=== PATIENT | male | born 1945 | race Caucasian/White ===

== ENCOUNTER 2020-06-09 11:12 | Emergency (ER) | payer OTHER, SELFPAY ==
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
[2020-06-09 11:14] VITALS: BP 152/95; PULSE 97; RESP 14; TEMP 37.1; O2SAT 99
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
[2020-06-09 12:35] VITALS: BP 145/89; PULSE 89; RESP 16; TEMP 36.7; O2SAT 97
== END 2020-06-09 12:35 | disposition home or self-care (01) ==
PROVIDERS: Emergency Provider Emergency Medicine; PCP Internal Medicine
DX: R07.89 Other chest pain (principal); I12.9 Hypertensive chronic kidney disease with stage 1 through stage 4 chronic kidney disease, or unspecified chronic kidney disease; N18.4 Chronic kidney disease, stage 4 (severe); D63.1 Anemia in chronic kidney disease; N40.0 Benign prostatic hyperplasia without lower urinary tract symptoms; H40.9 Unspecified glaucoma; E78.5 Hyperlipidemia, unspecified; E03.9 Hypothyroidism, unspecified; E66.01 Morbid (severe) obesity due to excess calories; Z68.41 Body mass index [BMI] 40.0-44.9, adult; M17.12 Unilateral primary osteoarthritis, left knee; V43.52XA Car driver injured in collision with other type car in traffic accident, initial encounter
CPT/HCPCS: 71046; 99283

== ENCOUNTER 2021-02-22 15:42 | Inpatient (IN) | payer OTHER, SELFPAY ==
[2021-02-22] VITALS (13 sets, daily range): BP systolic 113–169; BP diastolic 65–108; PULSE 79–109; RESP 16–25; TEMP 36.6–37.1; O2SAT 93–99; BMI 42.1
--- NOTE | ~2021-02-22 | XR_ITS ---
EXAMINATION: XR chest 2V DATE: 02/22/2021 16:33 INDICATION: Midsternal chest pain. TECHNIQUE: Frontal and lateral views of the chest were obtained. COMPARISON: Chest 2 views 06/09/2020, CT abdomen and pelvis 12/28/2016 FINDINGS: There is mild atelectasis versus scarring at the lung bases. No pleural effusion or pneumot horax. The heart size is normal. IMPRESSION: 1. Mild atelectasis versus scarring at the lung bases. Reviewed, dictated and finalized at location A.
--- NOTE | 2021-02-22 15:44 | ECG_ITS ---
Measurements Intervals [place] Rate: 100 P: 31 HI: 154 QRS: -37 QRSD: 104 T: 86 QT: 368 QTc: 477 Interpretive Statements SINUS TACHYCARDIA ATRIAL COUPLETS AND ATRIAL PREMATURE COMPLEXES LEFT AXIS DEVIATION DELAYED PRECORDIAL R/S TRANSITION BORDERLINE ST-T WAVE ABNORMALITY- HIGH LATERAL LEADS BASELINE WANDER- I, II, AVR, AVL, AVF, V1-V3 ABNORMAL ECG Electronically Signed On 02-22-2021 17:30:10 CDT by George Weber D.O.
[2021-02-22 16:03] LABS: Basophils Absolute Auto 0.1 K/mm3 (0.0-0.1); Basophils Percent Auto 0.7 % (0.2-1.2); Eosinophils Absolute Auto 0.3 K/mm3 (0-0.3); Eosinophils Percent Auto 2.2 % (0-4.4); Hematocrit 46.9 % (42.0-52.0); Hemoglobin 14.6 g/dL (14.0-18.0); Immature Granulocyte Absolute 0.08 K/mm3 (0.00-0.031); Immature Granulocyte Percent A 0.6 % (0-0.5); Lymphocytes Percent Auto 35.5 % (18.3-44.2); Mean Corpuscular HGB Conc 31.1 g/dl (32-36); Mean Corpuscular Hemoglobin 25.9 pg (26-34); Mean Corpuscular Volume 83.3 fl (80-100); Monocytes Absolute Auto 0.9 K/mm3 (0.1-0.6); Monocytes Percent Auto 7.3 % (2.6-8.5); Neutrophils Absolute Auto 6.8 K/mm3 (1.3-6.7); Neutrophils Percent Auto 53.7 % (45.5-73.1); Platelet Count Result 276 k/mm3 (150-375); Red Blood Count 5.63 M/mm3 (4.6-6.20); Red Cell Distribution Width 17.5 % (11.5-14.5); White Blood Count 12.7 K/mm3 (4.5-10.0)
[2021-02-22 16:13] LABS: INR 1.1; Prothrombin Time 13.6 Seconds (11.1-14.7)
[2021-02-22 16:14] LABS: Partial Thromboplastin Time 29.1 SECONDS (22.3-36.8)
[2021-02-22 16:17] LABS: Anion Gap 15 mmol/L (8-16); Blood Urea Nitrogen 30 mg/dL (9-20); Calcium 9.4 mg/dL (8.4-10.2); Carbon Dioxide 20 mmol/L (22-30); Chloride 102 mmol/L (98-107); Estimated Glomerular Filt Rate 40; Glucose 205 mg/dL (65-110); Potassium 3.4 mmol/L (3.4-5.0); Sodium 137 mmol/L (137-145)
[2021-02-22 16:26] LABS: Atypical Lymphocytes Present; Platelet Estimate Adequate (Adequate)
[2021-02-22 16:49] LABS: Troponin I 0.829 ng/mL (0.000-0.034)
[2021-02-22] MEDS: ASPIRIN 81 MG CHEWABLE TABLET 324 MG PO (17:05)
[2021-02-22 18:06] LABS: Cholesterol 200 mg/dL (0-200); HDL Direct 37 mg/dL; Triglycerides 398 mg/dL (<150)
[2021-02-22 18:10] LABS: LDL Cholesterol Direct 83 mg/dL
[2021-02-22] MEDS: NITROGLYCERIN OINTMENT 1 INCH DOSE TRANSDERM (18:37)
[2021-02-22] MEDS: ATORVASTATIN 40 MG TABLET PO (18:37)
[2021-02-22] MEDS: METOPROLOL TARTRATE INJ 5 MG/5 ML VIAL IV PUSH (18:38)
[2021-02-22] MEDS: ENOXAPARIN 120 MG/0.8 ML SYRINGE SUB-Q (18:38)
--- NOTE | 2021-02-22 18:41 | PM.CNCAR ---
Assessment and Plan Assessment and plan (1) Chest pain: Code(s): R07.9 - Chest pain, unspecified Status: Acute Assessment and Plan: Resolved. (2) Elevated troponin: Code(s): R77.8 - Other specified abnormalities of plasma proteins Status: Acute Assessment and Plan: Probably NSTEMI. Follow serial troponin. Treatment with aspirin daily, Lovenox 1 mg/kg q 12 hours, Metoprolol, Atorvastatin. Check Lipid panel. Obtain echo Wednesday. Discuss risks/benefits/alternative treatment to cardiac cath on Wednesday and he is agreeable for procedure. (3) CKD (chronic kidney disease) stage 3, GFR 30-59 ml/min: Code(s): N18.30 - Chronic kidney disease, stage 3 unspecified Status: Acute (4) Obesity: Code(s): E66.9 - Obesity, unspecified Status: Acute (5) Essential hypertension: Code(s): I10 - Essential (primary) hypertension Status: Acute Assessment and Plan: Start Metoplol and monitor BP. History of Present Illness History of Present Illness Consult date/time: 02/22/21 18:41 Reason for consult: Chest pain. 75 yr old man presented to ER with chest pain. He is obese but with no significant cardiac history. His PCP is Dr. Davila but he does not like seeing physicians and has not seen him in years. Reports today he was eating M&M's and drinking pepsi when he noted vague mild chest discomfort across his chest lasting up to 30 minutes[address] He [address] himself into ER and pain subsided and has not returned. He normally can walk 1/2 mile with his cane due to arthritis and would have AVERY at that point. He has been trying to lose weight and states he lost about 85 pounds. Denies sob, orthopnea, PND, edema, dizziness, palpitations. EKG shows sinus rhythm with PAC's, borderline ST-T wave in high lateral leads. Troponin 0.829 first set. Cr 1.7/GFR 40. CXR is OK. Reason For Visit: CHEST PAIN Review of Systems Review of Systems: All systems reviewed & are unremarkable except as noted in HPI and below Constitutional: Constitutional: Reports as per HPI, Denies chills and Denies fever(s) Cardiovascular: Cardiovascular: Reports as per HPI, Reports chest pain, Denies irregular heart rhythm, Denies leg edema, Denies lightheadedness and Denies dyspnea on exertion Respiratory: Respiratory: Reports as per HPI and Denies dyspnea Gastrointestinal: Gastrointestinal: Reports as per HPI and Denies abdominal pain Genitourinary: Genitourinary: Reports as per HPI and Denies dysuria Musculoskeletal: Musculoskeletal: Reports as per HPI and Reports arthralgias Neurologic: Reports as per HPI, Denies dizziness and Denies syncope [facility] Past Medical History Medical History (Updated 02/22/21 @ 18:46 by George Weber DO) Abdominal wall hernia Anemia in chronic kidney disease BPH w/o urinary obs/LUTS Chronic kidney disease, stage 4 (severe) Essential hypertension 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, bilateral, stage unspecified Hyperlipidemia, unspecified Hypothyroidism (acquired) Impaired glucose tolerance Low serum testosterone Morbid (severe) obesity due to excess calories Primary osteoarthritis of left knee Screening for colorectal cancer Thalassemia trait Surgical History Surgical History (Updated 06/09/20 @ 12:26 by Reji Helms MD) History of laparotomy Family History Family History (Updated 02/15/19 @ 11:55 by DOCTOR UNKNOWN) Sibling Patient's brother is in good health Father Family history of lung cancer Patient's father is Mother Family history of malignant neoplasm of breast in first degree relative Patient's mother is Other Family history of malignant neoplasm Social History Social History Smoking status: Never smoker Alcohol intake: current Gender identity (if verbalized by the patient): Male Meds Home Medications and Allergies Home Medications Medication Instructions Recorded Confirmed
--- NOTE | 2021-02-22 18:41 | PC.NURSE ---
Patient requested to use rest room prior to receiving medication.
--- NOTE | 2021-02-22 19:38 | ED.CHESTPAIN ---
HPI - Chest Pain General Chief Complaint: Chest Pain Stated Complaint: CHEST PAIN Time Seen by Provider: 02/22/21 16:50 Source: patient Mode of arrival: ambulatory Limitations: no limitations History of Present Illness HPI narrative: 75-year-old male Patient states no known medical problems but rarely goes to the doctor Today about 1 hour before arrival he was getting ready to watch the movie suicide squad and as he ate M&Ms and drank club soda had sudden onset of fairly severe low chest/epigastric pain which lasted for about 30 minutes before gradually subsiding Did not radiate, he was slightly short of breath, did not vomit, was not diaphoretic Did not take anything for this at home prior to coming to the hospital He reports that he is currently asymptomatic As far as risk factors, he is overweight, he does not smoke, and he does not think he has high cholesterol high blood pressure or diabetes although he really does not know for sure Related Data Home Medications Medication Instructions Recorded Confirmed No Home Medications 06/09/20 02/22/21 Allergies Allergy/AdvReac Type Severity Reaction Status Date / Time No Known Allergies Allergy Verified 02/22/21 16:59 Review of Systems Review of Systems: All systems reviewed & are unremarkable except as noted in HPI and below Constitutional: Constitutional: Reports no additional constitutional complaints, Denies chills, Denies fever(s) and Denies headache(s) Eyes: Eyes: Reports no additional eye complaints and Denies change in vision ENT: Denies headache(s) and Denies sore throat Cardiovascular: Cardiovascular: Reports chest pain, Denies radiating jaw, neck or arm pain and Denies dyspnea Respiratory: Respiratory: Denies cough and Reports dyspnea Gastrointestinal: Gastrointestinal: Denies abdominal pain, Denies diarrhea and Denies vomiting Genitourinary: Genitourinary: Denies dysuria and Denies urinary frequency Musculoskeletal: Musculoskeletal: Denies deformity, Denies arthralgias, Denies joint swelling and Denies numbness Integumentary/Breasts: Skin/Breast: Denies rash and Denies wounds Neurologic: Denies headache(s), Denies focal weakness and Denies numbness Psychiatric: Psychiatric: Reports no additional psychiatric complaints Endocrine: Endocrine: Reports no additional endocrine complaints Hematologic/Lymphatic: Hematologic/Lymphatic: Reports no additional hematologic/lymphatic complaints Allergic/Immunologic: Allergic/Immunologic: Reports no additional allergic/immunologic complaints PMFSH Past Medical History Medical History (Updated 02/22/21 @ 19:55 by Max Juarez MD) Abdominal wall hernia Anemia in chronic kidney disease BPH w/o urinary obs/LUTS Chronic kidney disease, stage 4 (severe) Essential hypertension 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, bilateral, stage unspecified Hyperlipidemia, unspecified Hypothyroidism (acquired) Impaired glucose tolerance Low serum testosterone Morbid (severe) obesity due to excess calories Primary osteoarthritis of left knee Screening for colorectal cancer Thalassemia trait Surgical History Surgical History (Updated 06/09/20 @ 12:26 by Reji Helms MD) History of laparotomy Family History Family History (Updated 02/15/19 @ 11:55 by DOCTOR UNKNOWN) Sibling Patient's brother is in good health Father Family history of lung cancer Patient's father is Mother Family history of malignant neoplasm of breast in first degree relative Patient's mother is Other Family history of malignant neoplasm Social History Social History Smoking status: Never smoker Alcohol intake: current Gender identity (if verbalized by the patient): Male Exam Const: General: cooperative, no acute distress and alert Nutritional Appearance: obese Orientation/consciousness: patient oriented x3 (alert) HENMT: Head: normal to inspection, normocephalic and atraumatic
--- NOTE | 2021-02-22 20:45 | PC.NURSE ---
This patient, Carmelo Car, was admitted to IMU Room 205-01. Patient/family oriented to hospital policies and general routines including ID bracelet, bed and alarms, visiting hours, pain management, procedures, bathroom and other care routines, personal items, smoking policy, room service/diet, and visiting hours. Information on how to activate the Rapid Response Team has been discussed. Patient/Family are encouraged to report perceived risks to care and to ask questions if they do not understand what they are told or what they should do.
--- NOTE | 2021-02-22 21:00 | PM.IMHP ---
H&P: HPI History of Present Illness Date/Time: 02/22/21 21:00 Chief Complaint: Chest pain. Narrative: This is a 75-year-old male who presented to the emergency department earlier today via private vehicle from home for evaluation of chest pain. The patient tells me he has no known, significant medical history though he admits he has not seen his primary care provider for many years. His EMR suggests that he has prior history of anemia of chronic disease, hypertension, hypertension, pre diabetes, and chronic kidney disease though he seems to have no knowledge of this. In any event, not long prior to arrival he sat down to watch television, ate a handful of M&Ms, took a drink of Pepsi and shortly thereafter he developed an aching discomfort in the mid chest region. Initially he thought it was perhaps due to gas however he was unable to belch and due to persistent discomfort he decided to come to the emergency department. Not long after being directed to his room in the ER, the pain eased up and went away without intervention. He estimates that the discomfort lasted for approximately 30 minutes. It did not radiate. He denies associated nausea, vomiting, shortness of breath, and sweats. He has never had similar episodes in the past. In fact he has recently started going to the gym where he walks and lifts weights and he has never had any chest pain with that. It has not recurred and he feels just fine at the time my evaluation has no complaints. Review of Systems Review of Systems: Twelve systems were reviewed with pertinent positives and negatives as per HPI. He denies syncope and near syncope. No recent cold or flu symptoms. No fever, chills, or sweats. No orthopnea, PND, or significant lower extremity edema. He has occasional pain in his left knee due to arthritis and will use a cane sometimes. No feelings of racing heart or palpitations. He denies pleuritic pain shortness of breath. No cough. No nausea, vomiting, or diarrhea. He denies dysuria. Reports no symptoms of BPH. [facility] Past Medical History Medical History (Updated 02/23/21 @ 01:17 by Whit Guan PA-C) Benign prostatic hyperplasia Chronic kidney disease Dyslipidemia Essential hypertension Glaucoma Hypothyroidism Thalassemia trait Surgical History Surgical History (Updated 02/23/21 @ 01:17 by Whit Guan PA-C) History of bilateral cataract extraction History of ventral hernia repair Family History Family History Sibling Patient's brother is in good health Father Family history of lung cancer Patient's father is Mother Family history of malignant neoplasm of breast in first degree relative Patient's mother is Other Family history of malignant neoplasm Social History Social History (Updated 02/23/21 @ 01:17 by Whit Guan PA-C) Social History: The patient lives in [place]. He has children but they are estranged. 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 Nonsmoker. Denies alcohol and illicit substance abuse. Surrogate decision maker: Anshu Silva (brother). Code status: Full code. Meds Home Medications and Allergies Home Medications Medication Instructions Recorded Confirmed Type No Home Medications 06/09/20 02/22/21 History Allergies Allergy/AdvReac Type Severity Reaction Status Date / Time No Known Allergies Allergy Verified 02/22/21 16:59 Vital Signs Vital Signs - 24 hr 02/22/21 16:20 02/22/21 16:59 02/22/21 17:46 Temperature 98.7 F 97.8 F Pulse Rate 95 99 100 Respiratory Rate 20 25 H 18 Blood Pressure 169/72 H 148/93 H 152/108 H Pulse Oximetry 95 95 99 02/22/21 18:24 02/22/21 18:33 02/22/21 18:34 Temperature 98.3 F 98.4 F Pulse Rate 100 103 H Respiratory Rate 18 17 Blood Pressure 146/81 H 161/97 H Pulse Oximetry 95 95 95 02/22/21 18:38 02/22/21 19:38 02/22/21 20:20 Temperature
[2021-02-22] MEDS: METOPROLOL TARTRATE 25 MG TABLET PO (22:47)
[2021-02-23] VITALS (16 sets, daily range): BP systolic 104–139; BP diastolic 50–77; PULSE 73–96; RESP 18–22; TEMP 36.4–36.8; O2SAT 93–98
[2021-02-23] MEDS: ENOXAPARIN 120 MG/0.8 ML SYRINGE SUB-Q ×2 (05:44→17:17)
[2021-02-23 06:09] LABS: Hemoglobin 13.5 g/dL (14.0-18.0); Mean Corpuscular HGB Conc 31.4 g/dl (32-36); Mean Corpuscular Hemoglobin 26.2 pg (26-34); Mean Corpuscular Volume 83.3 fl (80-100); Mean Platelet Volume 9.4 fl (7.4-10.4); Platelet Count Result 286 k/mm3 (150-375); Red Blood Count 5.16 M/mm3 (4.6-6.20); Red Cell Distribution Width 17.3 % (11.5-14.5); White Blood Count 14.8 K/mm3 (4.5-10.0)
[2021-02-23 06:25] LABS: Alanine Aminotransferase 21 U/L (4-50); Albumin Level 4.1 g/dL (3.5-5.1); Alkaline Phosphatase 88 U/L (38-126); Anion Gap 10 mmol/L (8-16); Aspartate Amino Transferase 51 U/L (17-59); Bilirubin,Total 0.5 mg/dL (0.2-1.3); Blood Urea Nitrogen 34 mg/dL (9-20); Calcium 9.3 mg/dL (8.4-10.2); Carbon Dioxide 21 mmol/L (22-30); Chloride 107 mmol/L (98-107); Estimated CRCL calculation 44 ml/min; Estimated Glomerular Filt Rate 37; Glucose 166 mg/dL (65-110); Potassium 3.4 mmol/L (3.4-5.0); Sodium 138 mmol/L (137-145)
--- NOTE | 2021-02-23 08:16 | PM.PNCARD ---
Progress Note: A&P Assessment and Plan (1) Chest pain: Code(s): R07.9 - Chest pain, unspecified Status: Acute Assessment and Plan: Resolved. (2) Elevated troponin: Code(s): R77.8 - Other specified abnormalities of plasma proteins Status: Acute Assessment and Plan: Probably NSTEMI. Follow serial troponin. Treatment with aspirin daily, Lovenox 1 mg/kg q 12 hours, Metoprolol, Atorvastatin. Add Fish Oil for high TG. Obtain echo Wednesday. Discuss risks/benefits/alternative treatment to cardiac cath on Wednesday and he is agreeable for procedure. Will notify HCG in AM. Stop Lovenox after tonight's dose in anticipation for heart cath. (3) CKD (chronic kidney disease) stage 3, GFR 30-59 ml/min: Code(s): N18.30 - Chronic kidney disease, stage 3 unspecified Status: Acute (4) Obesity: Code(s): E66.9 - Obesity, unspecified Status: Acute (5) Essential hypertension: Code(s): I10 - Essential (primary) hypertension Status: Acute Assessment and Plan: Decrease Metoprolol 12.5 mg BID for low normal BP. Subjective Date/time seen: 02/23/21 08:16 Since admission, he has no more chest pains. Denies sob. Exam Const: General: cooperative, healthy appearing and comfortable Nutritional Appearance: obese Resp: Auscultation: clear to auscultation bilaterally, no crackles, no rales, no rhonchi and no wheezes Cardio: Jugular venous distension: no JVD Rate: regular rate Rhythm: regular rhythm Heart sounds: no murmurs Peripheral pulses: dorsalis pedis present GI: GI Palp: No abdominal tenderness and Yes Soft to palpation Neuro: General: oriented to person, oriented to place and oriented to time Extrem: Right lower extremity: no edema Left lower extremity: no edema Objective Data Vital Signs Vital Signs: Vital Signs - 24 hr 02/22/21 16:20 02/22/21 16:59 02/22/21 17:46 Temperature 98.7 F 97.8 F Pulse Rate 95 99 100 Respiratory Rate 20 25 H 18 Blood Pressure 169/72 H 148/93 H 152/108 H Pulse Oximetry 95 95 99 02/22/21 18:24 02/22/21 18:33 02/22/21 18:34 Temperature 98.3 F 98.4 F Pulse Rate 100 103 H Respiratory Rate 18 17 Blood Pressure 146/81 H 161/97 H Pulse Oximetry 95 95 95 02/22/21 18:38 02/22/21 19:38 02/22/21 20:20 Temperature 98.1 F 98.2 F Pulse Rate 103 H 99 83 Respiratory Rate 21 H 16 Blood Pressure 168/92 H 126/97 H Pulse Oximetry 94 95 02/22/21 20:32 02/22/21 22:00 02/22/21 22:47 Temperature Pulse Rate 79 85 109 H Respiratory Rate Blood Pressure Pulse Oximetry 95 02/22/21 23:51 02/23/21 00:00 02/23/21 02:00 Temperature 98.2 F Pulse Rate 85 79 83 Respiratory Rate 16 Blood Pressure 113/65 Pulse Oximetry 93 93 02/23/21 03:37 02/23/21 04:00 02/23/21 06:00 Temperature 98.1 F Pulse Rate 91 82 78 Respiratory Rate 20 Blood Pressure 104/50 L Pulse Oximetry 94 94 Intake/Output Intake/Output: Intake & Output 02/20/21 02/21/21 02/22/21 02/23/21 23:59 23:59 23:59 23:59 Output Total 300 Balance -300 Meds/Results Medications: Active Medications Generic Name Dose Route Start Last Admin Trade Name Freq PRN Reason Stop Dose Admin Acetaminophen 650 mg 02/22/21 18:44 Acetaminophen 325 Mg Tablet PO Q4H PRN Mild Pain (1-3) or Fever Aspirin 81 mg 02/23/21 08:00 Aspirin 81 Mg Chewable Tablet PO DAILY@0800 [facility] Atorvastatin Calcium 40 mg 02/23/21 09:00 Atorvastatin 40 Mg Tablet PO DAILY DAMIAN Enoxaparin Sodium 120 mg 02/23/21 06:00 02/23/21 05:44 Enoxaparin 120 Mg/0.8 Ml Syringe SUB-Q 02/24/21 00:00 120 mg Q12H DAMIAN Administration Metoprolol Tartrate 12.5 mg 02/23/21 09:00 Metoprolol Tartrate 12.5 Mg Tablet PO Q12HR DAMIAN Nitroglycerin 0.4 mg 02/22/21 18:44 Nitroglycerin Sl 0.4 Mg Tablet SUBLINGUAL Q5MIN PRN Chest Pain Ondansetron HCl 4 mg 02/22/21 18:44 Ondansetron Inj 4
--- NOTE | 2021-02-23 08:19 | ECG_ITS ---
Measurements Intervals [place] Rate: 79 P: 39 [place]: 158 QRS: -8 QRSD: 102 T: 134 QT: 386 QTc: 443 Interpretive Statements SINUS RHYTHM ATRIAL PREMATURE COMPLEX DELAYED PRECORDIAL R/S TRANSITION NONSPECIFIC ST & T-WAVE ABNORMALITY- DIFFUSE LEADS BORDERLINE ECG Electronically Signed On 02-23-2021 16:22:42 CDT by George Weber D.O.
[2021-02-23] MEDS: METOPROLOL TARTRATE 12.5 MG TABLET PO ×2 (09:09→20:18)
[2021-02-23] MEDS: OMEGA 3 POLYUNSAT FATTY ACIDS 1 GM CAP PO ×2 (09:09→17:17)
[2021-02-23] MEDS: ATORVASTATIN 40 MG TABLET PO (09:10)
[2021-02-23] MEDS: ASPIRIN 81 MG CHEWABLE TABLET PO (09:10)
[2021-02-23 09:23] LABS: Hemoglobin A1C 8.3 % (<5.7)
--- NOTE | 2021-02-23 11:10 | PC.NURSE ---
[facility] flyer was given to patient.
[2021-02-23 12:40] LABS: Free T4 Free Thyroxine Reflex 1.04 ng/dL (0.78-2.19)
[2021-02-23 14:19] LABS: Total Triiodothyronine (T3) 1.66 NG/ML (0.97-1.69)
[2021-02-24] VITALS (33 sets, daily range): BP systolic 108–150; BP diastolic 59–120; PULSE 60–144; RESP 14–24; TEMP 35.8–36.7; O2SAT 95–98
--- NOTE | 2021-02-24 | ECHO_ITS ---
Patient Info Name: Carmelo Car Age: 75 years : 1945 Gender: Male Ht: 69 in Wt: 285 lbs BSA: 2.57 m2 HR: 65 bpm BP: 122 / 59 mmHg Technical Quality: Fair Exam Date: 02/24/2021 10:18 AM Exam Location: [facility] Patient Status: Inpatient Admit Date: 02/22/2021 Staff Ordering Physician: George Weber DO Film Critic: Wayne Cabrera RDCS, RT Attending Provider: Mundo Anaya MD Referring Physician: Gus HAMEED; Exam Type: CA echo doppler color flow Study Info Indications R07.9 - Chest pain, unspecified Complete two-dimensional, color flow and Doppler transthoracic echocardiogram is performed. Summary 1. Complete two-dimensional, color flow and Doppler transthoracic echocardiogram is performed. 2. Left ventricular chamber dimension is normal. 3. Left ventricular systolic function is normal, estimated at 60-65%. 4. There is mildly increased left ventricular wall thickness. 5. The left ventricular diastolic function is grade I diastolic dysfunction. 6. E/e' 7 is not elevated. 7. There is mild aortic valve sclerosis. 8. No pulmonary hypertension, estimated pulmonary arterial systolic pressure is 26 mmHg. Left Ventricle E/e' 7 is not elevated. Left ventricular chamber dimension is normal. Left ventricular systolic function is normal, estimated at 60-65%. There is mildly increased left ventricular wall thickness. The left ventricular diastolic function is grade I diastolic dysfunction. Right Ventricle Right ventricular systolic function is normal based on a normal TAPSE 2.3 cm. Right ventricular chamber dimension is not well visualized. Left Atria Left atrial chamber dimension is normal. Right Atria Right atrial chamber dimension is normal. Aortic Valve The aortic valve is trileaflet. There is mild aortic valve sclerosis. There is no aortic valve stenosis. There is no aortic valve regurgitation. Pulmonic Valve There is no pulmonic regurgitation. Mitral Valve There is no mitral valve stenosis. There is no mitral valve regurgitation. Tricuspid Valve There is no tricuspid valve regurgitation. No pulmonary hypertension, estimated pulmonary arterial systolic pressure is 26 mmHg. Pericardium/Pleural There is no pericardial effusion. Inferior Vena Cava Normal inferior vena cava with >50% collapse upon inspiration consistent with normal right atrial pressure, 5 mmHg. Aorta The aortic root size at the sinus of Valsalva is normal. Left Ventricular Outflow Tract Name Value Normal LVOT 2D LVOT Diameter 2.1 cm LVOT Doppler LVOT Peak Gradient 3 mmHg LVOT Mean Gradient 1 mmHg LVOT VTI 14 cm LVOT VTI/AV VTI Ratio 0.5 LVOT Stroke Volume 50 ml LVOT CO 3.3 l/min LVOT CI 1.3 l/min/m2 Mitral Valve Name Value Normal
--- NOTE | 2021-02-24 01:02 | ECG_ITS ---
Measurements Intervals [place] Rate: 121 P: PA: 0 QRS: -22 QRSD: 100 T: 105 QT: 328 QTc: 467 Interpretive Statements ATRIAL FIBRILLATION WITH RAPID VENTRICULAR RESPONSE VENTRICULAR PREMATURE COMPLEX DELAYED PRECORDIAL R/S TRANSITION NONSPECIFIC ST & T-WAVE ABNORMALITY- HIGH LATERAL LEADS ABNORMAL ECG Electronically Signed On 02-24-2021 7:04:46 CDT by George Weber D.O.
[2021-02-24] MEDS: AMIODARONE 360 MG/D5W 200 ML 360 MG/200 ML BAG 33.33 MG IV CONT (01:33)
[2021-02-24] MEDS: AMIODARONE 150 MG/D5W 100 ML 150 MG/100 ML BAG 600 MG IV CONT (01:34)
[2021-02-24 05:52] LABS: Anion Gap 10 mmol/L (8-16); Blood Urea Nitrogen 37 mg/dL (9-20); Calcium 9.4 mg/dL (8.4-10.2); Carbon Dioxide 21 mmol/L (22-30); Chloride 107 mmol/L (98-107); Estimated CRCL calculation 47 ml/min; Estimated Glomerular Filt Rate 40; Glucose 157 mg/dL (65-110); Potassium 3.7 mmol/L (3.4-5.0); Sodium 138 mmol/L (137-145)
--- NOTE | 2021-02-24 07:57 | PM.PNCARD ---
Progress Note: A&P Assessment and Plan (1) Chest pain: Code(s): R07.9 - Chest pain, unspecified Status: Acute Assessment and Plan: Resolved. (2) Elevated troponin: Code(s): R77.8 - Other specified abnormalities of plasma proteins Status: Acute Assessment and Plan: Probably NSTEMI. Troponin peaked at 5. Treatment with aspirin daily, Lovenox 1 mg/kg q 12 hours, Metoprolol, Atorvastatin, Fish Oil for high TG. Obtain echo today. Discuss risks/benefits/alternative treatment to cardiac cath on Wednesday and he is agreeable for procedure. Consult HCG for left heart cath. Spoke with Dr. Brumfield. Last Lovenox dose last evening. (3) CKD (chronic kidney disease) stage 3, GFR 30-59 ml/min: Code(s): N18.30 - Chronic kidney disease, stage 3 unspecified Status: Acute (4) Obesity: Code(s): E66.9 - Obesity, unspecified Status: Acute (5) Essential hypertension: Code(s): I10 - Essential (primary) hypertension Status: Acute Assessment and Plan: Decrease Metoprolol 12.5 mg BID for low normal BP. (6) PAF (paroxysmal atrial fibrillation): Code(s): I48.0 - Paroxysmal atrial fibrillation Status: Acute Assessment and Plan: On Amiodarone drip. Since he is asymptomatic with it he could be having this all along but does not know it. Admits to daytime somnolence, so he could have GLENN. Will need outpatient sleep study. Will address anticoagulation after cardiac cath. Subjective Date/time seen: 02/24/21 07:57 He went into atrial fib at 12:05 am last night but did not feel palpitations. Denies chest pain or sob. Exam Const: General: cooperative, healthy appearing and comfortable Nutritional Appearance: obese Resp: Auscultation: clear to auscultation bilaterally, no crackles, no rales, no rhonchi and no wheezes Cardio: Jugular venous distension: no JVD Rate: regular rate Rhythm: regular rhythm Heart sounds: no murmurs Peripheral pulses: dorsalis pedis present GI: GI Palp: No abdominal tenderness and Yes Soft to palpation Neuro: General: oriented to person, oriented to place and oriented to time Extrem: Right lower extremity: no edema Left lower extremity: no edema Objective Data Vital Signs Vital Signs: Vital Signs - 24 hr 02/23/21 08:00 02/23/21 09:09 02/23/21 10:00 Temperature 98.2 F Pulse Rate 84 84 83 Respiratory Rate 18 Blood Pressure 104/64 Pulse Oximetry 96 02/23/21 12:00 02/23/21 14:00 02/23/21 16:00 Temperature 97.5 F L 97.6 F Pulse Rate 82 84 83 Respiratory Rate 22 H 20 Blood Pressure 124/64 114/59 L Pulse Oximetry 97 98 02/23/21 18:00 02/23/21 20:00 02/23/21 20:18 Temperature 97.9 F Pulse Rate 82 96 92 Respiratory Rate 20 Blood Pressure 139/77 Pulse Oximetry 95 02/23/21 22:00 02/23/21 23:33 02/24/21 00:00 Temperature 97.9 F Pulse Rate 75 76 75 Respiratory Rate 20 Blood Pressure 125/69 Pulse Oximetry 97 02/24/21 01:33 02/24/21 01:34 02/24/21 02:00 Temperature Pulse Rate 144 H 144 H 105 H Respiratory Rate Blood Pressure Pulse Oximetry 02/24/21 04:00 02/24/21 06:00 Temperature 97.8 F Pulse Rate 102 H 86 Respiratory Rate 20 Blood Pressure 122/59 L Pulse Oximetry 98 Intake/Output Intake/Output: Intake & Output 02/21/21 02/22/21 02/23/21 02/24/21 23:59 23:59 23:59 23:59 Intake Total 480 600 Output Total 425 1200 Balance 55 -600 Meds/Results Medications: Active Medications Generic Name Dose Route Start Last Admin Trade Name Alok PRN Reason Stop Dose Admin Acetaminophen 650 mg 02/22/21 18:44 Acetaminophen 325 Mg Tablet PO Q4H PRN Mild Pain (1-3) or Fever Aspirin 81 mg 02/23/21 08:00 02/23/21 09:10 Aspirin 81 Mg Chewable Tablet PO 81 mg DAILY@0800 [facility] Administration Atorvastatin Calcium 40 mg 02/23/21 09:00 02/23/21 09:10 Atorvastatin 40 Mg Tablet PO 40 mg DAILY DAMIAN Admini
[2021-02-24] MEDS: AMIODARONE 360 MG/D5W 200 ML 360 MG/200 ML BAG 16.67 MG IV CONT (08:41)
[2021-02-24] MEDS: METOPROLOL TARTRATE 12.5 MG TABLET PO ×2 (08:42→20:51)
[2021-02-24] MEDS: ASPIRIN 81 MG CHEWABLE TABLET PO (08:42)
[2021-02-24] MEDS: ATORVASTATIN 40 MG TABLET PO (08:42)
--- NOTE | 2021-02-24 09:09 | WPDMODSED ---
Moderate Sedation Note-Pt Data Patient Data Diagnosis: Non ST-elevation CO Present Complaint: No complaints Procedure to be performed/Plan: Left heart catheterization Allergies Allergy/AdvReac Type Severity Reaction Status Date / Time No Known Allergies Allergy Verified 02/22/21 16:59 Home Medications Medication Instructions Recorded Confirmed Type No Home Medications 06/09/20 02/22/21 History Current Medications: Active Medications Acetaminophen (Acetaminophen 325 Mg Tablet) 650 mg PO Q4H PRN PRN Reason: Mild Pain (1-3) or Fever Aspirin (Aspirin 81 Mg Chewable Tablet) 81 mg PO DAILY@0800 [facility] Last Admin: 02/24/21 08:42 Dose: 81 mg Documented by: Atorvastatin Calcium (Atorvastatin 40 Mg Tablet) 40 mg PO DAILY [facility] Last Admin: 02/24/21 08:42 Dose: 40 mg Documented by: Fish Oil ([place] 3 Polyunsat Fatty Acids 1 Gm Cap) 1 gm PO BID [facility] Last Admin: 02/23/21 17:17 Dose: 1 gm Documented by: Metoprolol Tartrate (Metoprolol Tartrate 12.5 Mg Tablet) 12.5 mg PO Q12HR [facility] Last Admin: 02/24/21 08:42 Dose: 12.5 mg Documented by: Nitroglycerin (Nitroglycerin Sl 0.4 Mg Tablet) 0.4 mg SUBLINGUAL Q5MIN PRN PRN Reason: Chest Pain Ondansetron HCl (Ondansetron Inj 4 Mg/2 Ml Vial) 4 mg IV PUSH Q4H PRN PRN Reason: Nausea Sedation/Anesthesia: No previous sedation/anesthesia problems (including family history). [facility] Past Medical History Medical History (Updated 02/24/21 @ 07:59 by George Weber DO) Benign prostatic hyperplasia Chronic kidney disease Dyslipidemia Essential hypertension Glaucoma Hypothyroidism Thalassemia trait Surgical History Surgical History (Updated 02/23/21 @ 01:17 by Whit Guan PA-C) History of bilateral cataract extraction History of ventral hernia repair Family History Family History Sibling Patient's brother is in good health Father Family history of lung cancer Patient's father is Mother Family history of malignant neoplasm of breast in first degree relative Patient's mother is Other Family history of malignant neoplasm Social History Social History (Updated 02/23/21 @ 01:17 by Whit Guan PA-C) Social History: The patient lives in [place]. He has children but they are estranged. 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 Nonsmoker. Denies alcohol and illicit substance abuse. Surrogate decision maker: Anshu Silva (brother). Code status: Full code. Mod Sed Physical Exam Physical Exam Pre Procedural Exam: Normal: Neck, Throat, Airway, Lungs, Heart Size, Heart Rate, Heart Rhythm and Neuro Exam and Variation: Appearance (Pleasant morbidly obese white male no distress) and Extremities (Distal arterial pulses are diminished) Hours since solid foods: 12 Hours since liquid intake: 12 Mallampati Classification: class III Internal Medicine - PN: Obj Da Vital Signs Vital Signs: Vital Signs - 24 hr 02/23/21 10:00 02/23/21 12:00 02/23/21 14:00 Temperature 36.4 C L Pulse Rate 83 82 84 Respiratory Rate 22 H Blood Pressure 124/64 Pulse Oximetry 97 02/23/21 16:00 02/23/21 18:00 02/23/21 20:00 Temperature 36.4 C 36.6 C Pulse Rate 83 82 96 Respiratory Rate 20 20 Blood Pressure 114/59 L 139/77 Pulse Oximetry 98 95 02/23/21 20:18 02/23/21 22:00 02/23/21 23:33 Temperature 36.6 C Pulse Rate 92 75 76 Respiratory Rate 20 Blood Pressure 125/69 Pulse Oximetry 97 02/24/21 00:00 02/24/21 01:33 02/24/21 01:34 Temperature Pulse Rate 75 144 H 144 H Respiratory Rate Blood Pressure Pulse Oximetry 02/24/21 02:00 02/24/21 04:00 02/24/21 06:00 Temperature 36.6 C Pulse Rate 105 H 102 H 86 Respiratory Rate 20 Blood Pressure 122/59 L Pulse Oximetry 98 02/24/21 08:41 02/24/21 08:42 Temperature Pulse Rate 63 63 Respiratory Rate Blood Pressure Pulse Oximetry Intake/Outp
--- NOTE | 2021-02-24 09:11 | PM.CNCAR ---
History of Present Illness History of Present Illness Consult date/time: 02/24/21 09:11 Reason For Visit: NSTEMI Narrative: This is a 75-year-old man I am seeing at the request of Dr. Weber this morning to arrange for coronary angiography. The patient was admitted to the hospital with weekend while he was on emergency room call with an episode of some chest pain that happened Wednesday evening indicative of a non ST elevation MO. The patient's pain was self-limited and has not recurred since hospitalization. His troponin level yasmine to over 5 and ECG showed some nondiagnostic ST and T changes. Over the weekend he was in atrial fibrillation for period of time which was converted to sinus with intravenous amiodarone. Laboratory data also demonstrates evidence of some chronic kidney disease with a creatinine of about 1.7. In this setting and angiogram has been recommended and I am seeing the patient this morning to perform a preop visit. He does not have any complaints or concerns he admits to being anxious about having a cardiac procedure done today. He was no home medication at admission he apparently was noncompliant with medical follow-up despite a known history of hypertension, pre diabetes and dyslipidemia. He is retired does not smoke and lives in his own home. Patient is morbidly obese with a BMI of 42.5. Review of Systems Constitutional: Constitutional: Reports no additional constitutional complaints Eyes: Eyes: Reports no additional eye complaints ENT: Reports system reviewed and no additional complaints, except as documented Cardiovascular: Cardiovascular: Reports as per HPI Respiratory: Respiratory: Reports no additional respiratory complaints Gastrointestinal: Gastrointestinal: Reports no additional gastrointestinal complaints Musculoskeletal: Musculoskeletal: Reports arthralgias Integumentary/Breasts: Skin/Breast: Reports system reviewed and no additional complaints, except as docu Neurologic: Reports system reviewed and no additional complaints, except as documented Endocrine: Endocrine: Reports no additional endocrine complaints Hematologic/Lymphatic: Hematologic/Lymphatic: Reports no additional hematologic/lymphatic complaints Allergic/Immunologic: Allergic/Immunologic: Reports no additional allergic/immunologic complaints [facility] Past Medical History Medical History (Updated 02/24/21 @ 07:59 by George Weber DO) Benign prostatic hyperplasia Chronic kidney disease Dyslipidemia Essential hypertension Glaucoma Hypothyroidism Thalassemia trait Surgical History Surgical History (Updated 02/23/21 @ 01:17 by Whit Guan PA-C) History of bilateral cataract extraction History of ventral hernia repair Family History Family History Sibling Patient's brother is in good health Father Family history of lung cancer Patient's father is Mother Family history of malignant neoplasm of breast in first degree relative Patient's mother is Other Family history of malignant neoplasm Social History Social History (Updated 02/23/21 @ 01:17 by Whit Guan PA-C) Social History: The patient lives in [place]. He has children but they are estranged. 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 Nonsmoker. Denies alcohol and illicit substance abuse. Surrogate decision maker: Anshu Silva (brother). Code status: Full code. Meds Home Medications and Allergies Home Medications Medication Instructions Recorded Confirmed Type No Home Medications 06/09/20 02/22/21 History Allergies Allergy/AdvReac Type Severity Reaction Status Date / Time No Known Allergies Allergy Verified 02/22/21 16:59 Vital Signs Vital Signs - 24 hr 02/23/21 10:00 02/23/21 12:00 02/23/21 14:00 Temperature 36.4 C L Pulse Rate 83 82 84 Respiratory Rate 22 H Blood Pressure 124/64 Pulse Oximetry 97
--- NOTE | 2021-02-24 10:22 | PC.NURSE ---
Pt to refuse laborer via stretcher. Amiodarone infusing
--- NOTE | 2021-02-24 11:20 | P.PCNCC_ITS ---
Cardiac Cath Procedure Note Date of procedure:: 02/24/21 Performing physician:: Abdoulaye Brumfield MD Indication:: Non ST-elevation HI Brief clinical history:: this is a 75-year-old man who is morbidly obese who ca me into the hospital over the weekend with a self-limited episode of chest pain after which there was significant troponin rise. Over the weekend he also had a episode of atrial fibrillation which was treated successfully with amiodarone restoring sinus rhythm. Angiography has been recommended in this setting Procedure Procedure performed:: left ventriculogram coronary angiogram femoral artery angiogram Sedation/Medication given:: fentanyl 50 mg Versed 2 mg case start time 10:55 a.m. case end time 11:16 a.m. sedation provided by Ekaterina Arreola RN, trained observer Access site:: right femoral artery Estimated blood loss:: 20-30 cc Procedure note:: patient was brought to the cardiac catheterization lab in the postabsorptive state where the right femoral triangle was prepared and draped in the usual fashion. Anesthesia was given with 1% lidocaine infiltrated locally. Using the modified Seldinger technique a 5 Nepali sheath was placed into the femoral artery and left heart catheterization was carried out. initially I used a 5 Nepali angled pigtail catheter to measure left-sided hemodynamics and to inject an LV g in the RUBIN projection. After this the left coronary artery was engaged and injected using a standard 5 Nepali FL4 catheter. The right coronary artery was engaged and injected using a standard 5 Nepali JR4 catheter. The cineangiograms were then reviewed and the case was terminated. An angiogram was done of the femoral artery through the sheath after which it was decided that the sheath would be removed with direct manual compression. Procedure was well tolerated and uncomplicated there was no evidence of a groin hematoma upon leaving the medical laboratory manager. Findings:: Hemodynamics: Central aortic pressure is the 126 over 64 left ventricle 126/0 end-diastolic 18 there is no gradient on pullback across the aortic valve. Left ventricle: The LV is normal in size there was a fair amount of ventricular ectopic activity during the LV injection when the patient was in sinus rhythm all segments appear to contract appropriately the global ejection fraction of visually estimated to be 60% I did not see any wall motion abnormalities in the RUBIN projection. The left main coronary artery is nicely patent the left anterior descending is a large caliber artery extending down to around the apex. There is minimal luminal irregularity in the proximal LAD otherwise the remainder of the vessel looks angiographically unremarkable. The circumflex is a large caliber vessel giving rise to the marginal branches and several posterolateral branches. The circumflex system is smooth and angiographically normal in appearance right coronary artery is codominant ending in an RPDA the PL branches is detailed above or circumflex vessels in this patient. There was some catheter- tip spasm in the proximal RCA upon engaging the artery but other than this the remainder of the vessel is free of significant disease there are some mild luminal irregularities in the small RPDA but no lesions that appear to be flow- limiting. Conclusion:: 1. Angiographically minimal coronary artery disease with codominant circulation 2. normal left ventricular systolic function as seen in the RUBIN projection. Abdoulaye Brumfield MD [facility]
--- NOTE | 2021-02-24 13:51 | PM.IMPN ---
Progress Note: A&P Assessment and Plan (1) Non-STEMI (non-ST elevated myocardial infarction): Code(s): I21.4 - Non-ST elevation (NSTEMI) myocardial infarction Status: Acute Assessment and Plan: Patient present with chest pain. Trop peaked at 5.2. EKG showing borderline ST-T wave changes in the high lateral leads. Patient sen by cardiology and taken to the photonic laboratory technician today. His LHC showing EF 60% without wall motion abnormalities with minimal CAD. Possibly microvascular or spasm. Plan for medical management and risk stratification. (2) Essential hypertension: Code(s): I10 - Essential (primary) hypertension Status: Acute Assessment and Plan: Patient's blood pressure was reviewed on 02/24 Blood pressure remains reasonably well controlled. Will continue current medications. (3) Hypothyroidism: Code(s): E03.9 - Hypothyroidism, unspecified Status: Acute Assessment and Plan: TSH 13.5 on admission. Will start levothyroxine. (4) Dyslipidemia: Code(s): E78.5 - Hyperlipidemia, unspecified Status: Acute Assessment and Plan: LDL 83, HDL 37, TG 398 and TC 200. LFTs normal. Lipitor started. (5) Chronic kidney disease: Code(s): N18.9 - Chronic kidney disease, unspecified Status: Acute Assessment and Plan: Cr 1.7 on admission and stable on repeat. Patient did receive contrast today so will need to monitor closely. (6) Hyperglycemia: Code(s): R73.9 - Hyperglycemia, unspecified Status: Acute Assessment and Plan: Glucose 205 on admission. Hgb A1c has returned at 8.3 c/w diabetes. The patient's blood glucose was reviewed on 02/24. Start AccuCheks covering with sliding scale. Hypoglycemia protocol will be available as needed. eGFR 37-40 so no metformin. Add Invokana (100mg given the eGFR is in the 30-59 range) for renal and cardioprotective effects. wellness educator and accounts receivable supervisor consult (7) PAF (paroxysmal atrial fibrillation): Code(s): I48.0 - Paroxysmal atrial fibrillation Status: Acute Assessment and Plan: Patient developed AFib/RVR overnight. Treated with Amiodarone and converted to NSR. [id number] 4. Continue metoprolol. Add Eliquis? (8) DVT prophylaxis: Code(s): Z29.9 - Encounter for prophylactic measures, unspecified Status: Acute Assessment and Plan: Lovenox (resume prophylaxis dose when okay with cardiology) Subjective Date/time seen: 02/24/21 13:51 Interval history: 75yo male with BPH, CCKD and HTn here for chest pain. Patient back from [place]. He feels well. No pain in the groin. No n/v but has not eaten yet. No CP or SOB. RN states small hematoma has formed at cath site. Exam Narrative: AF 97.4 125/72 62 18 96% ra Gen - NARD lying flat in bed Chest - clear anteriorly, nml RR CV - RRR S1/S2; tele did show AFib overnight but currently maintaining NSR Abd - soft, obese, NT, +BS Ext - right groin dressing clean and dry with possibly a small heamtoma; 2+ DP pulses bilaterally Neuro - nonfocal Psych - pleasant and cooperative Skin - pink erythema in the groin bilaterally Objective Data Vital Signs Vital Signs: Vital Signs - 24 hr 02/23/21 14:00 02/23/21 16:00 02/23/21 18:00 Temperature 97.6 F Pulse Rate 84 83 82 Respiratory Rate 20 Blood Pressure 114/59 L Pulse Oximetry 98 02/23/21 20:00 02/23/21 20:18 02/23/21 22:00 Temperature 97.9 F Pulse Rate 96 92 75 Respiratory Rate 20 Blood Pressure 139/77 Pulse Oximetry 95 02/23/21 23:33 02/24/21 00:00 02/24/21 01:33 Temperature 97.9 F Pulse Rate 76 75 144 H Respiratory Rate 20 Blood Pressure 125/69 Pulse Oximetry 97 02/24/21 01:34 02/24/21 02:00 02/24/21 04:00 Temperature 97.8 F Pulse Rate 144 H 105 H 102 H Respiratory Rate 20 Blood Pressure 122/59 L Pulse Oximetry 98 02/24/21 06:00 02/24/21 08:00 02/24/21 08:41 Temperature
--- NOTE | 2021-02-24 14:15 | PC.NURSE ---
Pt returned from manager cardiac cath. Amiodarone infusing
[2021-02-24] MEDS: SODIUM CHLORIDE 0.9% IV 1,000 ML 125 ML IV CONT (14:43)
[2021-02-24 17:10] LABS: Glucose Point of Care 124 mg/dl (65-105)
[2021-02-24] MEDS: OMEGA 3 POLYUNSAT FATTY ACIDS 1 GM CAP PO (17:26)
[2021-02-24] MEDS: AMIODARONE HCL 200 MG TABLET PO (17:26)
[2021-02-24 20:27] LABS: Glucose Point of Care 147 mg/dl (65-105)
[2021-02-25] VITALS (8 sets, daily range): BP systolic 124–125; BP diastolic 62–71; PULSE 66–70; RESP 18–20; TEMP 36.5–36.7; O2SAT 94–98
[2021-02-25] MEDS: LEVOTHYROXINE SODIUM 25 MCG TABLET PO (05:00)
[2021-02-25 05:36] LABS: Hematocrit 39.2 % (42.0-52.0); Hemoglobin 11.9 g/dL (14.0-18.0); Mean Corpuscular HGB Conc 30.4 g/dl (32-36); Mean Corpuscular Volume 85.8 fl (80-100); Mean Platelet Volume 9.4 fl (7.4-10.4); Platelet Count Result 233 k/mm3 (150-375); Red Blood Count 4.57 M/mm3 (4.6-6.20); Red Cell Distribution Width 17.8 % (11.5-14.5)
[2021-02-25 06:06] LABS: Anion Gap 8 mmol/L (8-16); Blood Urea Nitrogen 33 mg/dL (9-20); Calcium 8.7 mg/dL (8.4-10.2); Carbon Dioxide 22 mmol/L (22-30); Chloride 108 mmol/L (98-107); Estimated CRCL calculation 50 ml/min; Estimated Glomerular Filt Rate 43; Glucose 134 mg/dL (65-110); Potassium 3.7 mmol/L (3.4-5.0); Sodium 138 mmol/L (137-145)
--- NOTE | 2021-02-25 07:58 | PM.PNCARD ---
Progress Note: A&P Assessment and Plan (1) Chest pain: Code(s): R07.9 - Chest pain, unspecified Status: Acute Assessment and Plan: Resolved. (2) Elevated troponin: Code(s): R77.8 - Other specified abnormalities of plasma proteins Status: Acute Assessment and Plan: Probably NSTEMI due to dissolved thrombus vs coronary vasospasms vs other. Troponin peaked at 5. Echo shows normal EF with no wall motion abnormalities. Left heart cath shows minimal LAD atherosclerosis. Treated with aspirin daily, Lovenox 1 mg/kg q 12 hours, Metoprolol, Atorvastatin, Fish Oil for high TG. Continue aspirin 81 mg daily, Atorvastatin, Metoprolol, Fish Oil. May d/c home from cardiology standpoint and f/u with me in 1 week. (3) CKD (chronic kidney disease) stage 3, GFR 30-59 ml/min: Code(s): N18.30 - Chronic kidney disease, stage 3 unspecified Status: Acute (4) Obesity: Code(s): E66.9 - Obesity, unspecified Status: Acute (5) Essential hypertension: Code(s): I10 - Essential (primary) hypertension Status: Acute Assessment and Plan: Stable. (6) PAF (paroxysmal atrial fibrillation): Code(s): I48.0 - Paroxysmal atrial fibrillation Status: Acute Assessment and Plan: On Amiodarone drip. Since he is asymptomatic with it he could be having this all along but does not know it. Admits to daytime somnolence, so he could have GLENN. Will need outpatient sleep study. Start Xarelto 15 mg daily. Subjective Date/time seen: 02/25/21 07:58 Denies chest pain or sob. No right groin cath access site pain. Exam Const: General: cooperative, healthy appearing and comfortable Nutritional Appearance: obese Resp: Auscultation: clear to auscultation bilaterally, no crackles, no rales, no rhonchi and no wheezes Cardio: Jugular venous distension: no JVD Rate: regular rate Rhythm: regular rhythm Heart sounds: no murmurs Peripheral pulses: dorsalis pedis present GI: GI Palp: No abdominal tenderness and Yes Soft to palpation Neuro: General: oriented to person, oriented to place and oriented to time Extrem: Right lower extremity: no edema Left lower extremity: no edema Objective Data Vital Signs Vital Signs: Vital Signs - 24 hr 08/09/21 08:00 02/24/21 08:41 02/24/21 08:42 Temperature 96.5 F L Pulse Rate 64 63 63 Respiratory Rate 18 Blood Pressure 124/70 Pulse Oximetry 96 02/24/21 10:00 02/24/21 11:35 02/24/21 11:50 Temperature 97.4 F L Pulse Rate 60 67 65 Respiratory Rate 17 20 Blood Pressure 108/65 109/62 Pulse Oximetry 95 95 02/24/21 12:00 02/24/21 12:10 02/24/21 12:30 Temperature Pulse Rate 66 66 63 Respiratory Rate 21 H 16 14 Blood Pressure 138/92 H 144/120 H 120/74 Pulse Oximetry 95 95 95 02/24/21 12:50 02/24/21 13:00 02/24/21 13:15 Temperature Pulse Rate 64 62 63 Respiratory Rate 16 18 20 Blood Pressure 131/76 125/72 140/78 Pulse Oximetry 95 96 96 02/24/21 13:45 02/24/21 14:00 02/24/21 14:15 Temperature 97.8 F Pulse Rate 65 66 65 Respiratory Rate 20 15 16 Blood Pressure 150/80 H 138/74 122/69 Pulse Oximetry 98 98 98 02/24/21 15:15 02/24/21 16:00 02/24/21 16:15 Temperature 97.7 F 96.6 F L Pulse Rate 67 67 67 Respiratory Rate 18 24 H Blood Pressure 128/61 115/70 Pulse Oximetry 95 98 96 02/24/21 17:15 02/24/21 17:26 02/24/21 18:00 Temperature 96.4 F L Pulse Rate 64 72 78 Respiratory Rate 18 Blood Pressure 119/67 Pulse Oximetry 98 02/24/21 18:15 02/24/21 19:32 02/24/21 20:00 Temperature 96.5 F L 98.1 F Pulse Rate 70 72 64 Respiratory Rate 16 18 Blood Pressure 114/90 108/92 H Pulse Oximetry 97 97 02/24/21 20:51 02/24/21 22:00 02/24/21 23:46 Temperature 97.7 F Pulse Rate 68 64 68 Respiratory Rate 20 Blood Pressure 129/71 Pulse Oximetry 97 02/25/21 00:00 02/25/21 02:00 08/10/21 04:00 Temperature 97.7 F Pulse Rate 66 68 67 Respiratory Rate
--- NOTE | 2021-02-25 08:00 | ECG_ITS ---
Measurements Intervals [place] Rate: 68 P: 29 [place]: 164 QRS: 4 QRSD: 109 T: 77 QT: 427 QTc: 454 Interpretive Statements SINUS RHYTHM NONSPECIFIC ST & T-WAVE ABNORMALITY- DIFFUSE LEADS BORDERLINE ECG Electronically Signed On 02-25-2021 10:57:49 CDT by George Weber D.O.
[2021-02-25] MEDS: METOPROLOL TARTRATE 12.5 MG TABLET PO (08:31)
[2021-02-25] MEDS: OMEGA 3 POLYUNSAT FATTY ACIDS 1 GM CAP PO (08:31)
[2021-02-25] MEDS: AMIODARONE HCL 200 MG TABLET PO (08:31)
[2021-02-25] MEDS: CANAGLIFLOZIN 100 MG TABLET PO (08:31)
[2021-02-25] MEDS: ATORVASTATIN 40 MG TABLET PO (08:31)
[2021-02-25] MEDS: ASPIRIN 81 MG CHEWABLE TABLET PO (08:32)
[2021-02-25 08:34] LABS: Glucose Point of Care 146 mg/dl (65-105)
--- NOTE | 2021-02-25 08:50 | PC.NURSE ---
Addendum entered by Maira Ren, JAKUB 02/25/21 09:56: Date entered incorrectly. Actual date 02/25/21 Original Note: Previous RN didn't log out of system. Medications given under [facility] (Salima Godinez RN) from [id number] on 02/24/21 were actually administered under sign on SCIENCE INTERPRETER (Maira Ren, RN)
--- NOTE | 2021-02-25 10:47 | PM.DS ---
DS: Admitting Diagnosis Admitting Diagnosis Chest pain DS: Discharge Diagnosis Discharge Diagnosis (1) Non-STEMI (non-ST elevated myocardial infarction): Code(s): I21.4 - Non-ST elevation (NSTEMI) myocardial infarction Status: Acute Assessment and Plan: Patient presented with chest pain. Trop peaked at 5.2. EKG showing borderline ST-T wave changes in the high lateral leads. Patient was seen by cardiology and taken to the mobile lab technician 02/24/21. His LHC showing EF 60% without wall motion abnormalities with minimal CAD. Possibly microvascular or spasm. The plan is for medical management and risk stratification. (2) PAF (paroxysmal atrial fibrillation): Code(s): I48.0 - Paroxysmal atrial fibrillation Status: Acute Assessment and Plan: Patient developed AFib/RVR after admission. He was treated with Amiodarone and converted to NSR. [id number] 4. We continued the metoprolol. Amiodarone and Xarelto added. Care Coordination to determine pharmacy cost for some of these medications. (3) Diabetes mellitus: Code(s): E11.9 - Type 2 diabetes mellitus without complications Status: Acute Assessment and Plan: Glucose 205 on admission. Hgb A1c has returned at 8.3 c/w diabetes. The patient's blood glucose was monitored with AccuCheks covering with sliding scale. Hypoglycemia protocol was also available as needed. eGFR 37-40 so no metformin. We added Invokana (100mg given the eGFR is in the 30-59 range) for renal and cardioprotective effects. stock plan administrator and risk control specialist were consulted. Side effects of Invokana discussed. Invokana too expensive so changed Amaryl. Side effects discussed. (4) Essential hypertension: Code(s): I10 - Essential (primary) hypertension Status: Acute Assessment and Plan: Patient's blood pressure was monitored while hospitalized. Blood pressure overall remained reasonably well controlled. (5) Hypothyroidism: Code(s): E03.9 - Hypothyroidism, unspecified Status: Acute Assessment and Plan: TSH 13.5 on admission. Low dose levothyroxine started. Will need followup TSH in 4-6 weeks (6) Chronic kidney disease: Code(s): N18.9 - Chronic kidney disease, unspecified Status: Acute Assessment and Plan: Cr 1.7 on admission. Patient did receive contrast but Cr remained stable. (7) Dyslipidemia: Code(s): E78.5 - Hyperlipidemia, unspecified Status: Acute Assessment and Plan: LDL 83, HDL 37, TG 398 and TC 200. LFTs normal. Lipitor was started. DS: Summary Hospital Course Reason for hospitalization: 75yo male with BPH, CKD and HTN here for chest pain. Please see H&P for details. Hospital Course: Please see above for details of hospital course Status at Discharge Cognitive/behavioral status at discharge: stable Time Spent with Patient Time attestation: Total time spent providing and/or coordinating discharge services: 38 minutes Time spent: Greater than 30 minutes Exam Narrative: AF 97.8 125/62 70 18 94% ra Gen - NARD sitting up in chair Chest - few basilar rhonchi o/w clear, nml RR CV - RRR S1/S2; tele showing no alarms Abd - soft, obese, NT, +BS Ext - right groin dressing clean and dry with small heamtoma; mild bruising noted around this area Neuro - nonfocal; able to stabnd and walk to the bed under his own power Psych - pleasant and cooperative DS: Data Data Completed and Pending Labs on day of discharge: Labs from last 24 hours 02/25/21 02/25/21 02/25/21 07:53 04:44 04:44 WBC 13.0 H RBC 4.57 L Hgb 11.9 L Hct 39.2 L MCV 85.8 MCH 26.0 MCHC 30.4 L RDW 17.8 H Plt Count 233 MPV 9.4 Sodium 138 Potassium 3.7 Chloride 108 H Carbon Dioxide 22 Anion Gap 8 BUN 33 H Creatinine 1.60 H Estim Creat Clear Calc 50 Estimated GFR 43 L Glucose 134 H POC Capillary Glucose 146
[2021-02-25 12:49] LABS: Glucose Point of Care 125 mg/dl (65-105)
== END 2021-02-25 15:15 | disposition home or self-care (01) | DRG 281 ==
LOC: ANHED 17:07 → ANHIMU 19:55
PROVIDERS: Emergency Medicine; Internal Medicine Cardiovascular Disease; Physician Assistant; Specialist; Admitting Provider Internal Medicine; Emergency Provider Emergency Medicine; PCP Internal Medicine; Visit Provider Internal Medicine
PROC: 4A023N7 Measurement of Cardiac Sampling and Pressure, Left Heart, Percutaneous Approach (ICD-10-PCS; CPT 93452; principal; 2021-02-24 10:30)
DX: I21.4 Non-ST elevation (NSTEMI) myocardial infarction (principal); Z68.41 Body mass index [BMI] 40.0-44.9, adult; I48.0 Paroxysmal atrial fibrillation; E03.9 Hypothyroidism, unspecified; I12.9 Hypertensive chronic kidney disease with stage 1 through stage 4 chronic kidney disease, or unspecified chronic kidney disease; N18.30 Chronic kidney disease, stage 3 unspecified; E11.22 Type 2 diabetes mellitus with diabetic chronic kidney disease; E78.5 Hyperlipidemia, unspecified; N40.0 Benign prostatic hyperplasia without lower urinary tract symptoms; D63.1 Anemia in chronic kidney disease; E66.01 Morbid (severe) obesity due to excess calories; M17.12 Unilateral primary osteoarthritis, left knee; D56.3 Thalassemia minor; H40.9 Unspecified glaucoma; E11.65 Type 2 diabetes mellitus with hyperglycemia; I25.10 Atherosclerotic heart disease of native coronary artery without angina pectoris; G47.33 Obstructive sleep apnea (adult) (pediatric); Z98.42 Cataract extraction status, left eye; Z98.41 Cataract extraction status, right eye
CPT/HCPCS: 36415; 71046; 80048; 80053; 80061; 82948; 83036; 84439; 84443; 84480; 84484; 85025; 85027; 85610; 85730; 93005; 93306; 93458; 96372; 96374; 99285; A9270; C1887; C1894; J0282; J0461; J0583; J1644; J1650; J2250; J3010; J7030; J7040

== ENCOUNTER 2021-03-02 07:03 | Emergency (ER) | payer OTHER, SELFPAY ==
[2021-03-02] VITALS (10 sets, daily range): BP systolic 110–117; BP diastolic 56–58; PULSE 74–79; RESP 15–24; TEMP 37.1; O2SAT 94–95
--- NOTE | ~2021-03-02 | XR_ITS ---
EXAMINATION: XR chest 2V DATE: 03/02/2021 07:30 INDICATION: Chest pain TECHNIQUE: Frontal and lateral views of the chest are obtained COMPARISON: 02/22/2021 FINDINGS: There are stable opacities of the lung bases. There is no pleural effusion or pneumothorax. The cardiomediastinal silhouette is normal. There is mild thoracic spondylosis. IMPRESSION: 1. Stable airspace opacities of the lung bases, consistent with atelectasis versus scarring. Reviewed, dictated and finalized at location A. IMPRESSION: 1. Stable airspace opacities of the lung bases, consistent with atelectasis nely oneil scarring.
--- NOTE | 2021-03-02 07:07 | ECG_ITS ---
Measurements Intervals [place] Rate: 80 P: 52 NH: 170 QRS: 8 QRSD: 106 T: 86 QT: 372 QTc: 429 Interpretive Statements SINUS RHYTHM NONSPECIFIC ST & T-WAVE ABNORMALITY- ANTEROLAT/HIGH LAT LEADS BASELINE ARTIFACT- I, II, III, AVR, AVL, AVF, V2-V6 BORDERLINE ECG Electronically Signed On 03-02-2021 12:03:48 CDT by George Weber D.O.
[2021-03-02 07:24] LABS: Hematocrit 43.6 % (42.0-52.0); Hemoglobin 13.1 g/dL (14.0-18.0); Mean Corpuscular Hemoglobin 26.2 pg (26-34); Mean Corpuscular Volume 87.2 fl (80-100); Mean Platelet Volume 9.1 fl (7.4-10.4); Platelet Count Result 283 k/mm3 (150-375); Red Cell Distribution Width 18.3 % (11.5-14.5)
[2021-03-02 07:32] LABS: INR 3.1
[2021-03-02 07:35] LABS: Anion Gap 11 mmol/L (8-16); Blood Urea Nitrogen 32 mg/dL (9-20); Calcium 8.9 mg/dL (8.4-10.2); Carbon Dioxide 13 mmol/L (22-30); Chloride 108 mmol/L (98-107); Estimated CRCL calculation 45 ml/min; Estimated Glomerular Filt Rate 37; Glucose 220 mg/dL (65-110); Potassium 3.8 mmol/L (3.4-5.0); Sodium 132 mmol/L (137-145)
[2021-03-02 07:45] LABS: Troponin I 0.027 ng/mL (0.000-0.034)
[2021-03-02 07:47] LABS: Band Neutrophils Percent 2 % (0-6); Lymphocytes Absolute Manual 1.82 K/mm3 (1.1-4.5); Monocytes Absolute Manual 0.26 K/mm3 (0.1-0.90); Monocytes Percent Manual 1 % (3-9); Neutrophils Absolute Manual 23.92 K/mm3 (1.3-6.7); Neutrophils Percent Manual 90 % (46-73); Platelet Estimate Adequate (Adequate); Total Cells Counted 100
[2021-03-02 07:49] LABS: Alanine Aminotransferase 21 U/L (4-50); Albumin Level 4.2 g/dL (3.5-5.1); Alkaline Phosphatase 81 U/L (38-126); Aspartate Amino Transferase 35 U/L (17-59); Bilirubin,Total 0.8 mg/dL (0.2-1.3)
--- NOTE | 2021-03-02 09:10 | ED.CHESTPAIN ---
HPI - Chest Pain General Chief Complaint: Chest Pain Stated Complaint: CP, sob Time Seen by Provider: 03/02/21 07:38 Source: patient Mode of arrival: ambulatory Limitations: no limitations History of Present Illness HPI narrative: 75 years old white male presented to the ED with right chest pain. Patient was watching TV, got up to go to the bathroom, felt throbbing discomfort of the right chest, took 1 tablet of nitroglycerin no improvement, got panicky and drove himself to the emergency room, few minutes prior to arrival to the emergency room the pain resolved. Currently patient is asymptomatic. Patient status post normal cardiac catheterization 5 days ago. Currently patient is asymptomatic Related Data Allergies Allergy/AdvReac Type Severity Reaction Status Date / Time No Known Allergies Allergy Verified 03/02/21 08:41 Review of Systems Review of Systems: CONSTITUTIONAL: Denies fever, chills, or sweats. EYES: Denies visual changes, redness, or discharge. ENT: Denies rhinorrhea, congestion, sore throat, or otalgia. CARDIOVASCULAR: Denies chest pain, palpitations, or edema. RESPIRATORY: Denies cough or dyspnea. GASTROINTESTINAL: Denies abdominal pain, nausea, vomiting, or diarrhea. GENITOURINARY: Denies dysuria or hematuria. SKIN: Denies rash or itching. MUSCULOSKELETAL: Denies back pain, joint pain, or myalgia. NEUROLOGIC: Denies headache, numbness, or weakness. PSYCHIATRIC: Denies anxiety or depression. [facility], [facility] Past Medical History Medical History Benign prostatic hyperplasia Chronic kidney disease Diabetes mellitus Dyslipidemia Essential hypertension Glaucoma Hypothyroidism Thalassemia trait Surgical History Surgical History History of bilateral cataract extraction History of ventral hernia repair Family History Family History Sibling Patient's brother is in good health Father Family history of lung cancer Patient's father is Mother Family history of malignant neoplasm of breast in first degree relative Patient's mother is Other Family history of malignant neoplasm Social History Social History Social History: The patient lives in [place]. He has children but they are estranged. 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 Nonsmoker. Denies alcohol and illicit substance abuse. Surrogate decision maker: Anshu Silva (brother). Code status: Full code. Exam Narrative: General appearance: Well-developed, well-nourished Skin: Normal color Head: Normocephalic, nontraumatic Eyes: Clear conjunctiva ENT: Oropharynx normal, ears normal, nose normal Neck: Supple, nontender Chest and respiratory: Airway patent, no respiratory distress, no accessory muscle use Heart: Regular rate/rhythm Abdomen: Soft, nontender, no organomegaly, quiet bowel sounds Vascular: Normal peripheral pulses, normal capillary refill. 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
--- NOTE | 2021-03-02 10:09 | PC.NURSE ---
Pt unable to urinate after drinking water. States I'm not going to be able to urinate, I just went before he ordered the test. I'm not staying until I can pee again. ERP aware.
--- NOTE | 2021-03-02 10:12 | PC.NURSE ---
When nurse returned to room to have pt sign out AMA pt reports he might be able to pee in a few minutes and now wants to wait.
[2021-03-02 10:33] LABS: Basophils Absolute Auto 0.1 K/mm3 (0.0-0.1); Basophils Percent Auto 0.4 % (0.2-1.2); Eosinophils Percent Auto 0.1 % (0-4.4); Hematocrit 42.9 % (42.0-52.0); Hemoglobin 13.1 g/dL (14.0-18.0); Immature Granulocyte Absolute 0.28 K/mm3 (0.00-0.031); Lymphocytes Absolute Auto 1.57 K/mm3 (0.9-3.2); Lymphocytes Percent Auto 5.7 % (18.3-44.2); Mean Corpuscular HGB Conc 30.5 g/dl (32-36); Mean Corpuscular Hemoglobin 26.4 pg (26-34); Mean Corpuscular Volume 86.3 fl (80-100); Mean Platelet Volume 9.2 fl (7.4-10.4); Monocytes Absolute Auto 1.4 K/mm3 (0.1-0.6); Monocytes Percent Auto 5.2 % (2.6-8.5); Neutrophils Percent Auto 87.6 % (45.5-73.1); Platelet Count Result 281 k/mm3 (150-375); Red Blood Count 4.97 M/mm3 (4.6-6.20); Red Cell Distribution Width 18.4 % (11.5-14.5); White Blood Count 27.4 K/mm3 (4.5-10.0)
--- NOTE | 2021-03-02 11:32 | PC.NURSE ---
Has drank 2 glasses of water and attempted to urinate 3 times but still unable.
[2021-03-02] MEDS: SODIUM CHLORIDE 0.9% IV 1,000 ML 999 ML IV CONT (12:33)
[2021-03-02 13:31] LABS: Add Urine Microscopic? YES; Appearance Urine Cloudy (Clear); Bilirubin Urine Negative (Negative); Color Urine Amber (Yellow); Glucose Urine UA Negative (Negative); Ketones Urine Negative (Negative); Leukocyte Esterase Ur Trace LEU/UL (Negative); Mucus Urine Rare /lpf; Nitrate Urine Negative (Negative); Protein Urine 2+ mg/dL (Negative); RBC Urine 0-2 /hpf (0-2); Specific Grav Ur 1.025 (1.001-1.035); Squamous Epithelial Cell Urine Rare /hpf (Few); Urobilinogen Urine Negative mg/dL (<2.0); WBC Urine 21-30 /hpf
[2021-03-02 13:46] LABS: Blood Urine Negative (Negative)
== END 2021-03-02 15:20 | disposition home or self-care (01) ==
PROVIDERS: Emergency Provider Emergency Medicine; PCP Internal Medicine
DX: E86.0 Dehydration (principal); N39.0 Urinary tract infection, site not specified; R07.9 Chest pain, unspecified; I12.9 Hypertensive chronic kidney disease with stage 1 through stage 4 chronic kidney disease, or unspecified chronic kidney disease; E11.22 Type 2 diabetes mellitus with diabetic chronic kidney disease; N18.9 Chronic kidney disease, unspecified; E03.9 Hypothyroidism, unspecified; N40.0 Benign prostatic hyperplasia without lower urinary tract symptoms
CPT/HCPCS: 36415; 71046; 80048; 80076; 81001; 84484; 85025; 85610; 85730; 87077; 87086; 87088; 87186; 93005; 96361; 96365; 99285; J0696; J7030

== ENCOUNTER 2023-07-13 17:22 | Observation (INO) | payer OTHER, SELFPAY ==
--- NOTE | ~2023-07-13 | CT_ITS ---
EXAMINATION: CT brain wo con DATE: 07/13/2023 17:53 INDICATION: dizziness . TECHNIQUE: Computed tomography (CT) of the head was performed without intravenous contrast. The mA wa s adjusted according to patient size. Iterative reconstruction technique was employed. The dose-lengt h product was 605.33 mGy-cm. COMPARISON: None. FINDINGS: No acute intracranial hemorrhage or extra-axial fluid collection. No hydrocephalus, mass, or herniation. No acute ischemic infarct. Unremarkable dural venous sinus attenuation. No acute osseous abnormality. The aerated spaces are clear. Mild atrophy and chronic white matter change. Atherosclerotic intracranial calcification. Bilateral l ens replacements. IMPRESSION: No acute intracranial process. Reviewed, dictated and finalized at location K. CARE BILLER
--- NOTE | ~2023-07-13 | US_ITS ---
EXAMINATION: US venous doppler [facility] DATE: 07/15/2023 14:41 INDICATION: Lower limb swelling. TECHNIQUE: Grayscale ultrasound images without and with compression and Doppler ultrasound images of the bilateral lower extremity veins were obtained. COMPARISON: None. FINDINGS: The visualized portions of right common femoral vein, profunda (deep) femoral vein, femoral vein, pop liteal vein, peroneal veins, posterior tibial veins, and greater saphenous vein outflow are patent. The visualized portions of left common femoral vein, profunda femoral vein, femoral vein, popliteal v ein, peroneal veins, posterior tibial veins, and greater saphenous vein outflow are patent. IMPRESSION: 1. No deep venous thrombosis. Reviewed, dictated and finalized at location A. HT RECORDER
--- NOTE | ~2023-07-13 | XR_ITS ---
EXAMINATION: XR chest 2V DATE: 07/15/2023 14:35 INDICATION: Dizziness. TECHNIQUE: Frontal and lateral views of the chest were obtained. COMPARISON: Chest 2 views 03/02/2021, CT abdomen and pelvis 12/28/16 FINDINGS: There is mild atelectasis versus scarring in the lower lung zones. No pleural effusion or p neumothorax. The heart size is normal. IMPRESSION: 1. Mild atelectasis versus scarring in the lower lung zones. Reviewed, dictated and finalized at location A. ATION TECHNICIAN
--- NOTE | ~2023-07-13 | NM_ITS ---
EXAMINATION: NM lung vent and perfusion DATE: 07/15/2023 13:39 INDICATION: Paroxysmal atrial fibrillation presenting with fatigue and abnormal d-dimer. TECHNIQUE: 17.4 mCi xenon-133 by inhalation and 5.5 mCi Tc-99m MAA by intravenous route. Scintigraph ic images of the chest were obtained. COMPARISON: Chest radiograph dated 07/15/2023 FINDINGS: There is homogeneous radiotracer activity throughout the lungs on the single breath ventilation seque nce. Single small perfusion defect along the basilar left lower lobe. There is otherwise relatively h omogeneous perfusion throughout the lungs. No discrete ventilation and perfusion mismatch identified on the posterior scintigrams. IMPRESSION: 1. Low probability for pulmonary embolism. Reviewed, dictated and finalized at location A. RY COOK HELPER
--- NOTE | ~2023-07-13 | CT_ITS ---
EXAMINATION: CTA brain carotid DATE: 07/14/2023 03:07 INDICATION: Dizziness. TECHNIQUE: Computed tomographic angiography (CTA) of the head was performed without and with 100 mL O mnipaque-350 intravenous contrast. CTA of the neck was performed with intravenous contrast. Automated exposure control and iterative reconstruction technique were employed. The dose-length product was 2 055.80 mGy-cm. Maximum intensity projection and volume rendered 3D-reconstructions were created by louie jean-baptiste technologist on a separate workstation. COMPARISON: Head CT 07/13/2023 FINDINGS: HEAD CTA: There are scattered areas of low attenuation in the cerebral white matter. There is no intr acranial hemorrhage, acute infarction, or abnormal intracranial mass lesion. The ventricles are марина l in size. There is mild mucosal thickening in the paranasal sinuses. There are likely changes of ocu lar lens replacement surgeries. There is a trace left mastoid effusion. Left vertebral artery is cheryl nant. There is no significant stenosis of basilar artery or the posterior cerebral arteries. There is no significant stenosis of intracranial internal carotid arteries or anterior or middle cerebral art eries. Anterior communicating artery is normal. Posterior communicating arteries are not identified. There is no aneurysm. NECK CTA: There is mild emphysema. There are no pathologically enlarged lymph nodes. There is no sign ificant stenosis of the vertebral arteries. There is plaque in the proximal internal carotid arteries . There is 0% stenosis of the proximal right internal carotid artery relative to normal distal artery lumen diameter (NASCET criteria). There is 0% stenosis of the proximal left internal carotid artery relative to normal distal artery lumen diameter. There is severe cervical spondylosis. IMPRESSION: 1. Moderate nonspecific cerebral white matter disease, which likely represents chronic small vessel i schemic disease. 2. No aneurysm or significant intracranial arterial stenosis. 3. 0% stenosis of the proximal internal carotid arteries relative to normal distal artery lumen diam eters (NASCET criteria). Reviewed, dictated and finalized at location E. N NURSE IMPRESSION: 1. Moderate nonspecific cerebral white matter disease, which likely represents chronic small vessel ischemic disease. 2. No aneurysm or significant intracranial arterial stenosis. 3. 0% stenosis of the proximal internal carotid arteries relative to normal di stal artery lumen diameters (NASCET criteria).
--- NOTE | ~2023-07-13 | US_ITS ---
EXAMINATION: US carotid duplex BI DATE: 07/15/2023 14:37 INDICATION: Dizziness. TECHNIQUE: Grayscale, color Doppler, and pulsed Doppler images of the cervical carotid arteries were obtained. The degree of vessel stenosis is placed in one of the following categories: normal, <50%, 5 0-69%, >=70% but less than near-occlusion, near-occlusion, or total occlusion. Note that percent sten osis relative to normal distal artery lumen diameter is indirectly measured from velocity measurement s as described by Wally, et al. Radiology 2003; 229:340-346. COMPARISON: CTA 07/14/2023 FINDINGS: RIGHT: The right common carotid artery (CCA) peak systolic velocity (PSV) is 147 cm/s. The right internal ca rotid artery (ICA) PSV is 97 cm/s. The right ICA end-diastolic velocity (EDV) is 23 cm/s. The right I CA/CCA PSV ratio is 0.7. Grayscale and color Doppler images yield an estimate of <50% diameter reduct ion from plaque in the ICA. There is antegrade flow in the right vertebral artery. LEFT: The left CCA PSV is 116 cm/s. The left ICA PSV is 92 cm/s. The left ICA EDV is 24 cm/s. The left ICA/ CCA PSV ratio is 0.8. Grayscale and color Doppler images yield an estimate of <50% diameter reduction from plaque in the ICA. There is antegrade flow in the left vertebral artery. IMPRESSION: 1. <50% stenosis in the right internal carotid artery. 2. <50% stenosis in the left internal carotid artery. Reviewed, dictated and finalized at location A. N TESTER
[2023-07-13 17:25] VITALS: BP 218/87; PULSE 90; RESP 16; TEMP 36.3; O2SAT 100
--- NOTE | 2023-07-13 17:28 | ED.DIZZY ---
HPI - Dizziness General Chief Complaint: Dizziness <Thao Olivares APRN - Last Filed: 07/13/23 17:32> Stated Complaint: dizzy <Thao Olivares APRN - Last Filed: 07/13/23 17:32> Time Seen by Provider: 07/14/23 00:46 <Thao Olivares APRN - Last Filed: 07/13/23 17:32> Source: patient <Thao Olivares APRN - Last Filed: 07/13/23 17:32> Mode of arrival: wheelchair <Thao Olivares APRN - Last Filed: 07/13/23 17:32> History of Present Illness HPI Narrative: patient is a pleasant 78 yo male who presents to the ED today in WC from home for evaluation of feeling dizzy/lightheaded, off-balance like he is going to fall. states it started yesterday and went away, today he slept most of the day, he states that he feels like crap . denies any fever, chills, body aches, urinary symptoms, vision changes, unilateral upper or lower extremity weakness, vomiting, diarrhea, chest pain or shortness of breath at rest. he did get fatigued just walking up from his car. <Thao Olivares APRN - Last Filed: 07/13/23 17:32> Related Data Allergies/Adverse Reactions: Allergies Allergy/AdvReac Type Severity Reaction Status Date / Time No Known Allergies Allergy Verified 03/02/21 08:41 <Thao Olivares APRN - Last Filed: 07/13/23 17:32> Review of Systems Review of Systems: CONSTITUTIONAL: Denies fever, chills, or sweats. +generalized fatigue/sleepiness. EYES: Denies visual changes, redness, or discharge. CARDIOVASCULAR: Denies chest pain, palpitations, or edema. RESPIRATORY: +sob with exertion. Denies cough or dyspnea at rest. NEUROLOGIC:+dizziness. Denies headache, numbness, or focal weakness. PSYCHIATRIC: Denies anxiety or depression. <Thao Olivares APRN - Last Filed: 07/13/23 17:32> All systems reviewed & are unremarkable except as noted in HPI and below <Thao Olivares APRN - Last Filed: 07/13/23 17:32> [facility], [facility] Past Medical History Medical History: Medical History Benign prostatic hyperplasia Chronic kidney disease Diabetes mellitus Dyslipidemia Essential hypertension Glaucoma Hypothyroidism Thalassemia trait <Thao Olivares APRN - Last Filed: 07/13/23 17:32> Surgical History Surgical History: Surgical History History of bilateral cataract extraction History of ventral hernia repair <Thao Olivares APRN - Last Filed: 07/13/23 17:32> Family History Family History: Family History Sibling Patient's brother is in good health Father Family history of lung cancer Patient's father is Mother Family history of malignant neoplasm of breast in first degree relative Patient's mother is Other Family history of malignant neoplasm <Thao Olivares APRN - Last Filed: 07/13/23 17:32> Social History Social History: Social History Social History: The patient lives in [place]. He has children but they are estranged. 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 Nonsmoker. Denies alcohol and illicit substance abuse. Surrogate decision maker: Anshu Silva (brother). Code status: Full code. <Thao Olivares APRN - Last Filed: 07/13/23 17:32> Exam Narrative: BRIEF FOCUSED EXAM: GENERAL: Well-appearing, well-nourished, obese elderly male sitting up on the chair. HEAD: Normocephalic, atraumatic. EYES: PERRLA CHEST: Clear to auscultation. No respiratory distress. HEART: Regular rate and rhythm. EXTREMITIES: Normal range of motion. No edema. SKIN: Warm, dry, no rash. NEURO: No focal deficits. Alert and oriented x3. PSYCH: Normal mood and affect. <Thao A. [place], SIZER HAND - Last Filed: 07/13/23 17:32> Course Vital Signs Vital signs: Vital Signs Temperature 36.3 C L
[2023-07-13 17:32] VITALS: BP 156/80; PULSE 82; RESP 18; TEMP 36.4; O2SAT 100
--- NOTE | 2023-07-13 17:32 | ECG_ITS ---
Measurements Intervals [place] Rate: 69 P: 52 NH: 173 QRS: -25 QRSD: 104 T: 59 QT: 417 QTc: 449 Interpretive Statements SINUS RHYTHM WITH OCCASIONAL VENTRICULAR PREMATURE COMPLEXES BORDERLINE LEFT AXIS DEVIATION [QRS AXIS < -20] COMPARED TO ECG 03/02/2021 07:09:39 NO SIGNIFICANT CHANGES Electronically Signed On 07-14-2023 13:19:54 [employer] by Abelardo Rivas M.D.
[2023-07-13 22:55] VITALS: BP 179/76; PULSE 68; RESP 15; O2SAT 99
[2023-07-13 23:23] VITALS: BP 182/84; PULSE 81; RESP 15; O2SAT 98
[2023-07-13 23:27] LABS: Basophils Absolute Auto 0.1 K/mm3 (0.0-0.1); Basophils Percent Auto 0.8 % (0.2-1.2); Eosinophils Absolute Auto 0.2 K/mm3 (0-0.3); Eosinophils Percent Auto 1.6 % (0-4.4); Hematocrit 45.9 % (42.0-52.0); Hemoglobin 14.2 g/dL (14.0-18.0); Immature Granulocyte Absolute 0.05 K/mm3 (0.00-0.031); Immature Granulocyte Percent A 0.4 % (0-0.5); Lymphocytes Absolute Auto 3.55 K/mm3 (0.9-3.2); Lymphocytes Percent Auto 30.8 % (18.3-44.2); Mean Corpuscular HGB Conc 30.9 g/dl (32-36); Mean Corpuscular Hemoglobin 28.2 pg (26-34); Mean Corpuscular Volume 91.1 fl (80-100); Mean Platelet Volume 9.8 fl (7.4-10.4); Monocytes Absolute Auto 0.8 K/mm3 (0.1-0.6); Monocytes Percent Auto 6.6 % (2.6-8.5); Neutrophils Absolute Auto 6.9 K/mm3 (1.3-6.7); Neutrophils Percent Auto 59.8 % (45.5-73.1); Platelet Count Result 214 k/mm3 (150-375); Red Blood Count 5.04 M/mm3 (4.6-6.20); Red Cell Distribution Width 16.1 % (11.5-14.5); White Blood Count 11.5 K/mm3 (4.5-10.0)
[2023-07-13 23:35] LABS: Alanine Aminotransferase 20 U/L (6-50); Albumin Level 4.2 g/dL (3.5-5.1); Alkaline Phosphatase 76 U/L (38-126); Anion Gap 12 mmol/L (8-16); Aspartate Amino Transferase 37 U/L (17-59); Bilirubin,Total 0.7 mg/dL (0.2-1.3); Blood Urea Nitrogen 21 mg/dL (9-20); Calcium 9.3 mg/dL (8.4-10.2); Carbon Dioxide 23 mmol/L (22-30); Chloride 103 mmol/L (98-107); Estimated Glomerular Filt Rate 37; Glucose 145 mg/dL (65-110); Magnesium 2.2 mg/dL (1.6-2.3); Potassium 3.9 mmol/L (3.4-5.0); Sodium 138 mmol/L (137-145)
[2023-07-13 23:42] LABS: INR 1.1; Prothrombin Time 15.2 Seconds (11.1-14.7)
[2023-07-13 23:46] LABS: D Dimer 0.56 ug/mL (<0.48); Troponin I < 0.012 ng/mL (0.000-0.034)
[2023-07-14] VITALS (15 sets, daily range): BP systolic 116–162; BP diastolic 69–92; PULSE 60–118; RESP 15–20; TEMP 36.4–36.7; O2SAT 96–100; BMI 94.3
[2023-07-14 00:04] LABS: Influenza A QL RT-PCR Negative (Negative); Influenza B QL RT-PCR Negative (Negative); RSV RNA, RT-PCR Negative (Negative); SARS-CoV-2 RNA PCR Negative (Negative)
[2023-07-14 03:01] LABS: Appearance Urine Cloudy (Clear); Bacteria Urine 4+ /hpf; Bilirubin Urine Negative (Negative); Blood Urine 1+ (Negative); Color Urine Yellow (Yellow); Glucose Urine UA 2+ mg/dL (Negative); Ketones Urine Trace mg/dL (Negative); Leukocyte Esterase Ur 1+ LEU/UL (Negative); Nitrate Urine Negative (Negative); Non Pathogenic Casts 0-2; Protein Urine 2+ mg/dL (Negative); Specific Grav Ur 1.029 (1.001-1.035); Squamous Epithelial Cell Urine None seen /hpf (Few); Urobilinogen Urine 0.2 mg/dL (<2.0); WBC Urine 51-100 /hpf
[2023-07-14 03:07] LABS: Add Urine Microscopic? YES
--- NOTE | 2023-07-14 07:40 | ADMGEN ---
This patient, Carmelo Car, was admitted to 3 Med Surg Room 311-01. Patient/family oriented to hospital policies and general routines including ID bracelet, bed and alarms, visiting hours, pain management, procedures, bathroom and other care routines, personal items, smoking policy, room service/diet, and visiting hours. Information on how to activate the Rapid Response Team has been discussed. Patient/Family are encouraged to report perceived risks to care and to ask questions if they do not understand what they are told or what they should do.
--- NOTE | 2023-07-14 10:27 | PM.IMHP ---
H&P: HPI History of Present Illness Date/Time: 07/14/23 10:27 Chief Complaint: Generalized weakness for 2 days Narrative: 78 years old male with history of multiple medical problems was admitted through the emergency room with complaint of having generalized weakness and fatigue going on for the last 2 days. According to the patient he feels like is going to pass out. Patient did not have any syncopal episode. Patient denies any shortness of breath chest pain. Patient denies any abdominal pain nausea or vomiting. In the emergency room patient was found to have urinary tract infection. CT head was negative. Urine culture was sent and IV ceftriaxone was started. Patient was sent for further evaluation treatment. On the floor at present time patient is feeling fine and lying comfortably in the bed. No new complaints. Review of Systems Review of Systems: All systems reviewed & are unremarkable except as noted in HPI and below (the history and physical exam.) [facility] Past Medical History Medical History Benign prostatic hyperplasia Chronic kidney disease Diabetes mellitus Dyslipidemia Essential hypertension Glaucoma Hypothyroidism Thalassemia trait Surgical History Surgical History History of bilateral cataract extraction History of ventral hernia repair Family History Family History Sibling Patient's brother is in good health Father Family history of lung cancer Patient's father is Mother Family history of malignant neoplasm of breast in first degree relative Patient's mother is Other Family history of malignant neoplasm Social History Social History Social History: The patient lives in [place]. He has children but they are estranged. 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 Nonsmoker. Denies alcohol and illicit substance abuse. Surrogate decision maker: Anshu Silva (brother). Code status: Full code. Smoking status: Never smoker Alcohol intake: former Substance use: never Do You Feel Safe in your Home?: Yes Lack of Transportation: No Lack of Food: Never True Current Housing: I Have Housing Concerned About Future Housing: No Difficulty Paying Gas/Electric Bills: No Difficulty Paying for Meds: No Currently Unemployed: No Education: High School Diploma/GED Difficulty w/ Childcare or Family Care: No Spiritual care concerns: No Meds Home Medications and Allergies Home Medications Medication Instructions Recorded Confirmed Type blood sugar diagnostic (OneTouch #1 g 02/25/21 07/14/23 Rx Verio test strips) blood-glucose meter (OneTouch #1 pkg 02/25/21 07/14/23 Rx Verio Flex Meter) lancets 30 gauge (OneTouch Delica #1 g 02/25/21 07/14/23 Rx Plus Lancet) nitroglycerin 0.4 mg sublingual 0.4 mg sublingual Q5MIN PRN Chest 02/25/21 07/14/23 Rx tablet (Nitrostat) Pain #20 tabs amiodarone 200 mg tablet (Pacerone) 200 mg PO BID 07/14/23 07/14/23 History atorvastatin 40 mg tablet 80 mg PO DAILY 07/14/23 07/14/23 History fenofibrate nanocrystallized 145 145 mg PO DAILY 07/14/23 07/14/23 History mg tablet glimepiride 1 mg tablet 2 mg PO DAILY 07/14/23 07/14/23 History levothyroxine 137 mcg tablet 137 mcg PO DAILY 07/14/23 07/14/23 History metoprolol tartrate 25 mg tablet 12.5 mg PO BID 07/14/23 07/14/23 History omega-3 acid ethyl esters 1 gram 2 g PO DAILY 07/14/23 07/14/23 History capsule rivaroxaban 15 mg tablet (Xarelto) 15 mg PO DAILY 07/14/23 07/14/23 History Allergies Allergy/AdvReac Type Severity Reaction Status Date / Time No Known Allergies Allergy Verified 03/02/21 08:41 Vital Signs Vital Signs - 24 hr 07/13/23 17:25 07/13/23 22:55 07/13/23 23:23 Temperature 36.3 C L Pulse Rate 90 68 8
[2023-07-14] MEDS: AMIODARONE HCL 200 MG TABLET PO ×2 (11:32→16:52)
[2023-07-14] MEDS: OMEGA 3 POLYUNSAT FATTY ACIDS 1 GM CAP 2 GM PO (11:33)
[2023-07-14] MEDS: FENOFIBRATE NANOCRYSTALLIZED 145 MG TABLET PO (11:33)
[2023-07-14] MEDS: ATORVASTATIN 40 MG TABLET 80 MG PO (11:33)
--- NOTE | 2023-07-14 14:56 | PCCCNOTE ---
On 07/14/23, the student, [Tika Lemus], provided care and completed [facility] documentation on this patient. I have reviewed the student's documentation and agree with the findings.
[2023-07-14] MEDS: METOPROLOL TARTRATE 12.5 MG TABLET PO (16:51)
[2023-07-14] MEDS: RIVAROXABAN 15 MG TABLET PO (16:52)
[2023-07-15] VITALS (11 sets, daily range): BP systolic 94–141; BP diastolic 72–91; PULSE 61–74; RESP 18–20; TEMP 36.6–36.8; O2SAT 97–100
[2023-07-15] MEDS: LEVOTHYROXINE SODIUM 112 MCG TABLET PO (05:48)
[2023-07-15] MEDS: LEVOTHYROXINE SODIUM 25 MCG TABLET PO (05:49)
[2023-07-15 07:08] LABS: Basophils Absolute Auto 0.1 K/mm3 (0.0-0.1); Basophils Percent Auto 0.8 % (0.2-1.2); Eosinophils Absolute Auto 0.4 K/mm3 (0-0.3); Eosinophils Percent Auto 2.7 % (0-4.4); Hematocrit 48.2 % (42.0-52.0); Hemoglobin 14.3 g/dL (14.0-18.0); Immature Granulocyte Absolute 0.05 K/mm3 (0.00-0.031); Immature Granulocyte Percent A 0.4 % (0-0.5); Lymphocytes Absolute Auto 4.38 K/mm3 (0.9-3.2); Lymphocytes Percent Auto 33.4 % (18.3-44.2); Mean Corpuscular HGB Conc 29.7 g/dl (32-36); Mean Corpuscular Hemoglobin 27.2 pg (26-34); Mean Corpuscular Volume 91.8 fl (80-100); Mean Platelet Volume 10.2 fl (7.4-10.4); Monocytes Absolute Auto 0.9 K/mm3 (0.1-0.6); Monocytes Percent Auto 6.9 % (2.6-8.5); Neutrophils Absolute Auto 7.3 K/mm3 (1.3-6.7); Neutrophils Percent Auto 55.8 % (45.5-73.1); Platelet Count Result 234 k/mm3 (150-375); Red Blood Count 5.25 M/mm3 (4.6-6.20); Red Cell Distribution Width 16.7 % (11.5-14.5); White Blood Count 13.1 K/mm3 (4.5-10.0)
[2023-07-15] MEDS: AMIODARONE HCL 200 MG TABLET PO ×2 (08:12→16:52)
[2023-07-15] MEDS: GLIMEPIRIDE 2 MG TABLET PO (08:12)
[2023-07-15] MEDS: ATORVASTATIN 40 MG TABLET 80 MG PO (08:12)
[2023-07-15] MEDS: FENOFIBRATE NANOCRYSTALLIZED 145 MG TABLET PO (08:12)
[2023-07-15] MEDS: OMEGA 3 POLYUNSAT FATTY ACIDS 1 GM CAP 2 GM PO (08:12)
[2023-07-15] MEDS: METOPROLOL TARTRATE 12.5 MG TABLET PO ×2 (08:12→16:52)
--- NOTE | 2023-07-15 10:07 | PM.IMPN ---
Progress Note: A&P Assessment and Plan (1) Acute UTI: Code(s): N39.0 - Urinary tract infection, site not specified Status: Acute Assessment and Plan: Urine culture, IV ceftriaxone. (2) Diabetes mellitus: Code(s): E11.9 - Type 2 diabetes mellitus without complications Status: Acute Assessment and Plan: Stable on current medications, will continue current treatment. (3) PAF (paroxysmal atrial fibrillation): Code(s): I48.0 - Paroxysmal atrial fibrillation Status: Acute Assessment and Plan: Stable on current medications, will continue current treatment. (4) Hypothyroidism: Code(s): E03.9 - Hypothyroidism, unspecified Status: Acute Assessment and Plan: Stable on current medications, will continue current treatment. (5) Benign prostatic hyperplasia: Code(s): N40.0 - Benign prostatic hyperplasia without lower urinary tract symptoms Status: Acute Assessment and Plan: Stable on current medications, will continue current treatment. (6) Hypertension: Code(s): I10 - Essential (primary) hypertension Status: Acute Assessment and Plan: Stable on current medications, will continue current treatment. (7) D-dimer, elevated: Code(s): R79.89 - Other specified abnormal findings of blood chemistry Status: Acute Assessment and Plan: Order venous Doppler and V/Q scan Plan Patient is full code. DVT prophylaxis with Xarelto. Patient is admitted with a diagnosis of UTI as a full admission. Subjective Date/time seen: 07/15/23 10:07 Interval history: Patient was seen during the morning rounds today. Patient is feeling better. No shortness of breath or chest pain. No abdominal pain, nausea, no vomiting. Mood stable. Review of Systems Review of Systems: CONSTITUTIONAL: Denies fever, chills, or sweats. +generalized fatigue/sleepiness. EYES: Denies visual changes, redness, or discharge. CARDIOVASCULAR: Denies chest pain, palpitations, or edema. RESPIRATORY: +sob with exertion. Denies cough or dyspnea at rest. NEUROLOGIC:+dizziness. Denies headache, numbness, or focal weakness. PSYCHIATRIC: Denies anxiety or depression. All systems reviewed & are unremarkable except as noted in HPI and below (the history and physical exam.) Exam Narrative: GENERAL: Well-appearing, well-nourished, obese elderly male sitting up on the chair. HEAD: Normocephalic, atraumatic. EYES: PERRLA CHEST: Clear to auscultation.? No respiratory distress. HEART: Regular rate and rhythm. EXTREMITIES: Normal range of motion.? No edema. SKIN: Warm, dry, no rash. NEURO: No focal deficits.? Alert and oriented x3. PSYCH: Normal mood and affect. Objective Data Vital Signs Vital Signs: Vital Signs - 24 hr 07/14/23 11:32 07/14/23 13:58 07/14/23 12:00 Temperature 36.6 C Pulse Rate 72 77 73 Respiratory Rate 18 Blood Pressure 116/78 Pulse Oximetry 97 Oxygen Delivery 07/14/23 16:00 07/14/23 16:51 07/14/23 16:52 Temperature Pulse Rate 81 82 82 Respiratory Rate Blood Pressure Pulse Oximetry Oxygen Delivery 07/14/23 17:03 07/14/23 17:04 07/14/23 21:14 Temperature 36.4 C L 36.4 C L 36.7 C Pulse Rate 67 81 62 Respiratory Rate 18 18 20 Blood Pressure 143/69 H 133/90 133/71 Pulse Oximetry 100 98 98 Oxygen Delivery 07/14/23 20:00 07/15/23 00:00 07/15/23 04:00 Temperature Pulse Rate 60 72 62 Respiratory Rate Blood Pressure Pulse Oximetry Oxygen Delivery 07/15/23 06:00 07/15/23 08:12 07/15/23 08:12 Temperature 36.6 C Pulse Rate 64 74 74 Respiratory Rate 20 Blood Pressure 134/72 Pulse Oximetry 100 Oxygen Delivery 07/15/23 08:00 Temperature Pulse Rate Respiratory Rate Blood Pressure Pulse Oximetry 100 Oxygen Delivery Room Air Intake/Output Intake/Output: Intake & Output 07/12/23 07/13/23 07/14/23 07/15/23 23:59 23:59 23:59 2
--- NOTE | 2023-07-15 14:02 | PCCCNOTE ---
On 07/15/23, the student, [Tika Lemus], provided care and completed [facility] documentation on this patient. I have reviewed the student's documentation and agree with the findings.
[2023-07-15] MEDS: RIVAROXABAN 15 MG TABLET PO (16:52)
[2023-07-16] VITALS (8 sets, daily range): BP systolic 146–159; BP diastolic 63–66; PULSE 57–65; RESP 18–19; TEMP 36.4–36.5; O2SAT 98–100
[2023-07-16] MEDS: LEVOTHYROXINE SODIUM 112 MCG TABLET PO (05:51)
[2023-07-16] MEDS: LEVOTHYROXINE SODIUM 25 MCG TABLET PO (05:51)
[2023-07-16 06:53] LABS: Hematocrit 46.2 % (42.0-52.0); Hemoglobin 13.8 g/dL (14.0-18.0); Mean Corpuscular HGB Conc 29.9 g/dl (32-36); Mean Corpuscular Hemoglobin 27.8 pg (26-34); Mean Platelet Volume 9.6 fl (7.4-10.4); Platelet Count Result 221 k/mm3 (150-375); Red Blood Count 4.97 M/mm3 (4.6-6.20); Red Cell Distribution Width 16.6 % (11.5-14.5); White Blood Count 12.3 K/mm3 (4.5-10.0)
[2023-07-16 07:04] LABS: Alanine Aminotransferase 19 U/L (6-50); Albumin Level 4.2 g/dL (3.5-5.1); Alkaline Phosphatase 73 U/L (38-126); Anion Gap 10 mmol/L (8-16); Aspartate Amino Transferase 47 U/L (17-59); Bilirubin,Total 0.9 mg/dL (0.2-1.3); Blood Urea Nitrogen 27 mg/dL (9-20); Calcium 9.1 mg/dL (8.4-10.2); Carbon Dioxide 25 mmol/L (22-30); Chloride 104 mmol/L (98-107); Estimated CRCL calculation 64 ml/min; Estimated Glomerular Filt Rate 33; Glucose 128 mg/dL (65-110); Potassium 4.2 mmol/L (3.4-5.0); Sodium 139 mmol/L (137-145)
--- NOTE | 2023-07-16 08:15 | PM.IMPN ---
Progress Note: A&P Assessment and Plan (1) Acute UTI: Code(s): N39.0 - Urinary tract infection, site not specified Status: Acute Assessment and Plan: 07/15/23: Urine culture, IV ceftriaxone. 07/16/23: Urine culture showing gram negative bacilli on preliminary, awaiting final results with sensitivites. Continue with Rocephin for now (2) Benign prostatic hyperplasia: Code(s): N40.0 - Benign prostatic hyperplasia without lower urinary tract symptoms Status: Acute Assessment and Plan: 07/15/23: Stable on current medications, will continue current treatment. 07/16/23: (3) NOHEMY (acute kidney injury): Code(s): N17.9 - Acute kidney failure, unspecified Status: Acute Assessment and Plan: 07/16/23: BUN 27, creatinine 2.0 Baseline around 1.7 (4) Diabetes mellitus: Code(s): E11.9 - Type 2 diabetes mellitus without complications Status: Chronic Assessment and Plan: 07/15/23: Stable on current medications, will continue current treatment. 07/16/23: BG ranging 128-145 Continue Glimepiride (5) Hypertension: Code(s): I10 - Essential (primary) hypertension Status: Acute Assessment and Plan: 07/15/23: Stable on current medications, will continue current treatment. 07/16/23: B/P ranging 141/91-159/66 Patient on home medications, continue with this treatment plan (6) PAF (paroxysmal atrial fibrillation): Code(s): I48.0 - Paroxysmal atrial fibrillation Status: Acute Assessment and Plan: 07/15/23: Stable on current medications, will continue current treatment. 07/16/23: Patient currently on home medications of Xarelto and Metoprolol (7) Hypothyroidism: Code(s): E03.9 - Hypothyroidism, unspecified Status: Acute Assessment and Plan: 07/15/23: Stable on current medications, will continue current treatment. 07/16/23: Patient on levothyroxine (8) D-dimer, elevated: Code(s): R79.89 - Other specified abnormal findings of blood chemistry Status: Acute Assessment and Plan: 07/15/23: Order venous Doppler and V/Q scan 07/16/23: D-dimer only slightly elevated 0.56 V/Q scan showing low probability for DVT Venous dopplers negative for DVT Time Spent With Patient Time with patient: 25 - 35 minutes Subjective Date/time seen: 07/16/23 08:15 Interval history: This is a 78 year old male who presents to the hospital on 07/13/23 with complaints of generalized weakness for 2 days. Work up in the hospital included head CT which was negative, head/neck CTA which shown age related changes, no aneurysm or stenosis seen. Pulmonary perfusion scan was low probability for PE. CXR shown mild atelectasis versus scarring in the lower lung zones. Carotid doppler study shown less than 50% stenosis in both carotid arteries. Venous doppler US was negative for DVT. Labs shown WBC 11.5, D-dimer of 0.56, BUN 21, Creatinine 1.80. UA shown 2+ protein, 2+ glucose, trace ketones, 1+ blood, 1+ leukocytes, 3-5 urine RBC, 51-100 urine WBC, 4+ bacteria. Respiratory panel negative. Urine culture was obtained and patient was started on Rocephin. On exam today patientLabs today reveal WBC 12.9, BUN 27, Creatinine 2.0, liver enzymes are normal. Urine culture showing gram negative bacilli on preliminary read. Continue with Rocephin for now while awaiting final culture read and sensitivities. Review of Systems Review of Systems: All systems reviewed & are unremarkable except as noted in HPI and below Constitutional: Constitutional: Reports as per HPI and Reports no additional constitutional complaints Eyes: Eyes: Reports as per HPI and Reports no additional eye complaints ENT: Reports system reviewed and no additional complaints, except as documented and Reports as per HPI Cardiovascular: Cardiovascular: Reports as per HPI and Reports no additional cardiovascular complaints Respirato
[2023-07-16] MEDS: GLIMEPIRIDE 2 MG TABLET PO (09:03)
[2023-07-16] MEDS: ATORVASTATIN 40 MG TABLET 80 MG PO (09:03)
[2023-07-16] MEDS: OMEGA 3 POLYUNSAT FATTY ACIDS 1 GM CAP 2 GM PO (09:04)
[2023-07-16] MEDS: FENOFIBRATE NANOCRYSTALLIZED 145 MG TABLET PO (09:04)
[2023-07-16] MEDS: AMIODARONE HCL 200 MG TABLET PO (09:04)
[2023-07-16] MEDS: METOPROLOL TARTRATE 12.5 MG TABLET PO (09:04)
--- NOTE | 2023-07-16 15:49 | PM.DS ---
DS: Admitting Diagnosis Discharge Date 07/16/23 Admitting Diagnosis UTI DS: Summary Hospital Course Reason for hospitalization: Acute UTI Type 2 diabetes mellitus without complication Paroxysmal atrial fib Hypothyroidism Benign prostate hyperplasia Hypertension Hospital Course: This is a 78 year old male who presents to the hospital on 07/13/23 with complaints of generalized weakness for 2 days. Work up in the hospital included head CT which was negative, head/neck CTA which shown age related changes, no aneurysm or stenosis seen. Pulmonary perfusion scan was low probability for PE. CXR shown mild atelectasis versus scarring in the lower lung zones. Carotid doppler study shown less than 50% stenosis in both carotid arteries. Venous doppler US was negative for DVT. Labs shown WBC 11.5, D-dimer of 0.56, BUN 21, Creatinine 1.80. UA shown 2+ protein, 2+ glucose, trace ketones, 1+ blood, 1+ leukocytes, 3-5 urine RBC, 51-100 urine WBC, 4+ bacteria. Respiratory panel negative. Urine culture was obtained and final read showing E. coli. Patient is stable for discharge. Patient originally on Rocephin IV and received 2 doses. He will transition to oral Cefdinir for an additional 10 days. He will then follow up with PCP in 1 week. Final diagnosis: complicated acute UTI, BPH Time Spent with Patient Time attestation: Total time spent providing and/or coordinating discharge services: Exam Narrative: General: In no acute distress, well nourished Head: atraumatic, no encephalopathy Eyes: EOMI, PERRLA, sclera clear ENT: moist mucous membranes, nasal passages clear Neck: supple, no JVD, no adenopathy, trachea midline Cardiac: Normal S1 and S2. No murmur, gallops or friction rubs, peripheral pulses intact. Respiratory: Lungs clear to auscultation, no adventitious lung sounds Gastrointestinal: soft, non-distended, non-tender, normoactive bowel sounds. : voiding without difficulty. Extremities: moves all extremities well, no edema, good ROM, strength 5/5 Skin: clean, dry, intact. No wounds or lesions. Neuro: Alert and oriented x4, cranial nerves intact, no neuro deficits. Psych: normal mood, normal affect, interactive DS: Data Data Completed and Pending Completed studies during hospitalization: Head CT Head/neck CTA Pulmonary perfusion imaging Chest x-ray Carotid Doppler study Venous Doppler today Pending studies at discharge: None Labs on day of discharge: Labs from last 24 hours 07/16/23 06:25 WBC 12.3 H RBC 4.97 Hgb 13.8 L Hct 46.2 MCV 93.0 MCH 27.8 MCHC 29.9 L RDW 16.6 H Plt Count 221 MPV 9.6 Sodium 139 Potassium 4.2 Chloride 104 Carbon Dioxide 25 Anion Gap 10 BUN 27 H Creatinine 2.00 H Estim Creat Clear Calc 64 Estimated GFR 33 L Glucose 128 H Calcium 9.1 Total Bilirubin 0.9 AST 47 ALT 19 Alkaline Phosphatase 73 Total Protein 8.0 Albumin 4.2 Procedures/Treatments: None Discharge Plan Discharge Attending physician on discharge: Lizzie Morales Consulting providers: Thao Olivares Discharging Clinician: Eve Ferrari Anticipated Discharge Date/Time: 07/16/23 15:43 Patient Disposition: Home, Self-Care Activity: as tolerated Diet: as tolerated Patient Instructions: Antibiotic Form, Cefdinir (By mouth), Rivaroxaban (By mouth), Urinary Tract Infection in Men (DC), Dizziness (GEN) Patient Language: Thai Stand Alone Forms: General Discharge Information Follow-up/Referrals: James,Timmy Ro MD [Primary Care Provider] - 1 Week Discharge Medications: New cefdinir 300 mg capsule 300 mg PO Q12H Qty: 16 0RF Continued nitroglycerin [Nitrostat] 0.4 mg Tablet, Sublingual 0.4 mg sublingual Q5MIN PRN (Reason: Chest Pain) Qty: 20 1RF (DME) blood-glucose meter [OneTouch Verio Flex meter] [facility] [place] 1 0RF Rx Instructions: May substitute to in-stock meter and/or covered by insurance. Use As Directed (DME) One
--- NOTE | 2023-07-17 12:13 | PC.NURSE ---
Patient called and stated [facility] did not receive antibiotic order. Per patient request, medication transmitted to [facility] in [facility]. Removed [facility] from patient profile per patient request.
== END 2023-07-16 20:00 | disposition home or self-care (01) ==
LOC: ANHED 07-14 06:01 → ANH3MEDSUR 07-14 07:29
PROVIDERS: Internal Medicine; Nurse Practitioner; Admitting Provider General Practice; Emergency Provider Emergency Medicine; PCP Internal Medicine; Visit Provider Student in an Organized Health Care Education/Training Program
DX: N39.0 Urinary tract infection, site not specified (principal); B96.20 Unspecified Escherichia coli [E. coli] as the cause of diseases classified elsewhere; N40.0 Benign prostatic hyperplasia without lower urinary tract symptoms; Z20.822 Contact with and (suspected) exposure to COVID-19; I12.9 Hypertensive chronic kidney disease with stage 1 through stage 4 chronic kidney disease, or unspecified chronic kidney disease; E11.22 Type 2 diabetes mellitus with diabetic chronic kidney disease; R90.82 White matter disease, unspecified; R94.31 Abnormal electrocardiogram [ECG] [EKG]; N18.9 Chronic kidney disease, unspecified; I65.23 Occlusion and stenosis of bilateral carotid arteries; I48.0 Paroxysmal atrial fibrillation; R60.0 Localized edema; R79.89 Other specified abnormal findings of blood chemistry; E78.5 Hyperlipidemia, unspecified; E03.9 Hypothyroidism, unspecified; H40.9 Unspecified glaucoma; D56.3 Thalassemia minor; Z79.84 Long term (current) use of oral hypoglycemic drugs; Z79.01 Long term (current) use of anticoagulants; Z79.899 Other long term (current) drug therapy
CPT/HCPCS: 36415; 70450; 70496; 70498; 71046; 78582; 80053; 81001; 83735; 84484; 85025; 85027; 85380; 85610; 87077; 87086; 87186; 87637; 93005; 93880; 93970; 96365; 96374; 96376; 99285; A9270; A9540; A9558; G0378; J0696; Q9967

== ENCOUNTER 2023-09-09 09:52 | Observation (INO) | payer OTHER, SELFPAY ==
[2023-09-09] VITALS (49 sets, daily range): BP systolic 143–191; BP diastolic 56–91; PULSE 64–85; RESP 13–25; TEMP 36.6–36.8; O2SAT 92–100; BMI 44.0
--- NOTE | ~2023-09-09 | US_ITS ---
EXAMINATION: US renal BI DATE: 09/10/2023 13:17 INDICATION: Renal failure TECHNIQUE: Multiple ultrasound grayscale images of the kidneys were obtained. COMPARISON: None. FINDINGS: The right kidney measures 9.3 x 4.2 x 5.1 with moderate renal cortical atrophy. Interval decrease in now mild right hydronephrosis. The left kidney measures 12.4 x 6.7 x 5.2 cm. The kidneys demonstrate normal echogenicity. There is no left hydronephrosis. No stones identified. The bladder is normal. IMPRESSION: 1. Interval progression of moderate right renal atrophy and interval decrease in now mild right hydro nephrosis which was previously related to an obstructing stone at the right renal pelvis which is not appreciated in the provided images. 2. Normal left kidney without hydronephrosis. Reviewed, dictated and finalized at location A. [employer] MACHINE IMPRESSION: 1. Interval progression of moderate right renal atrophy and interval decrease i n now mild right hydronephrosis which was previously related to an obstructing stone at the right renal pelvis which is not appreciated in the provided images . 2. Normal left kidney without hydronephrosis.
--- NOTE | ~2023-09-09 | CT_ITS ---
EXAMINATION: CT brain wo con DATE: 09/09/2023 15:29 INDICATION: Dizziness. TECHNIQUE: Computed tomography (CT) of the head was performed without intravenous contrast. The mA wa s adjusted according to patient size. Iterative reconstruction technique was employed. The dose-lengt h product was 681.00 mGy-cm. COMPARISON: Head CT 07/14/2023 FINDINGS: There is no intracranial hemorrhage, acute infarction, or abnormal intracranial mass lesion . The ventricles are normal in size. There is mild mucosal thickening in the ethmoid sinuses. The mas toid air cells are normal. There are likely changes of ocular lens replacement surgeries. IMPRESSION: 1. Stable moderate nonspecific cerebral white matter disease, which likely represents chronic small v essel ischemic disease. Reviewed, dictated and finalized at location E. ATTACHER IMPRESSION: 1. Stable moderate nonspecific cerebral white matter disease, which likely repr esents chronic small vessel ischemic disease.
--- NOTE | 2023-09-09 10:00 | ECG_ITS ---
Measurements Intervals Venus Rate: 79 P: 29 NC: 181 QRS: -11 QRSD: 113 T: 60 QT: 412 QTc: 475 Interpretive Statements SINUS RHYTHM MODERATE INTRAVENTRICULAR CONDUCTION DELAY [105+ ms QRS DURATION, 80+ ms Q/S IN V1/V2, NO Q AND 60+ ms R IN I/aVL/V5/V6] NONSPECIFIC ST & T-WAVE ABNORMALITY COMPARED TO ECG 07/13/2023 22:59:11 NO SIGNIFICANT CHANGES Electronically Signed On 09-09-2023 13:26:54 WASHER OFF by Abelardo Rivas M.D.
[2023-09-09 10:03] LABS: Glucose Point of Care 312 mg/dl (65-105)
[2023-09-09 10:19] LABS: Basophils Absolute Auto 0.1 K/mm3 (0.0-0.1); Basophils Percent Auto 0.9 % (0.2-1.2); Eosinophils Absolute Auto 0.3 K/mm3 (0-0.3); Eosinophils Percent Auto 2.7 % (0-4.4); Hematocrit 45.3 % (42.0-52.0); Hemoglobin 13.8 g/dL (14.0-18.0); Immature Granulocyte Absolute 0.05 K/mm3 (0.00-0.031); Immature Granulocyte Percent A 0.5 % (0-0.5); Lymphocytes Absolute Auto 3.02 K/mm3 (0.9-3.2); Lymphocytes Percent Auto 30.9 % (18.3-44.2); Mean Corpuscular HGB Conc 30.5 g/dl (32-36); Mean Corpuscular Hemoglobin 27.4 pg (26-34); Mean Corpuscular Volume 90.1 fl (80-100); Mean Platelet Volume 9.4 fl (7.4-10.4); Monocytes Absolute Auto 0.6 K/mm3 (0.1-0.6); Neutrophils Absolute Auto 5.8 K/mm3 (1.3-6.7); Platelet Count Result 208 k/mm3 (150-375); Red Blood Count 5.03 M/mm3 (4.6-6.20); Red Cell Distribution Width 16.4 % (11.5-14.5); White Blood Count 9.8 K/mm3 (4.5-10.0)
[2023-09-09 10:29] LABS: Alanine Aminotransferase 23 U/L (6-50); Albumin Level 4.2 g/dL (3.5-5.1); Alkaline Phosphatase 76 U/L (38-126); Anion Gap 10 mmol/L (8-16); Aspartate Amino Transferase 38 U/L (17-59); Bilirubin,Total 0.7 mg/dL (0.2-1.3); Blood Urea Nitrogen 26 mg/dL (9-20); Carbon Dioxide 21 mmol/L (22-30); Chloride 104 mmol/L (98-107); Estimated CRCL calculation 46 ml/min; Estimated Glomerular Filt Rate 39; Glucose 304 mg/dL (65-110); Potassium 3.6 mmol/L (3.4-5.0); Sodium 135 mmol/L (137-145)
[2023-09-09] MEDS: MECLIZINE HCL 25 MG TABLET PO (10:51)
[2023-09-09] MEDS: SODIUM CHLORIDE 0.9% IV 1,000 ML 999 ML IV CONT (10:51)
--- NOTE | 2023-09-09 12:33 | ED.GENADULT ---
HPI - General Adult General Chief complaint: Syncope Stated complaint: syncope Time Seen by Provider: 09/09/23 09:56 History of Present Illness HPI narrative: Patient is a 78-year-old male who presents ER with dizziness. Reports he was at a sandwich shop and was eating a [place] sandwich when he started feeling lightheaded. The symptoms persisted and got up to walk around and felt worse. The EMS report was that he lost consciousness but he denies losing consciousness. He reports dizziness intensified to where he was vomiting recurrently. He was feeling diaphoretic at the time. No diarrhea. He reports some mild sinus congestion that began today. No ringing in the ears. No focal numbness or weakness to an arm or leg. No slurred speech. Patient is anticoagulated on Xarelto. Related Data Home Medications Medication Instructions Recorded Confirmed amiodarone 200 mg tablet (Pacerone) 200 mg PO BID 07/14/23 07/14/23 atorvastatin 40 mg tablet 80 mg PO DAILY 07/14/23 07/14/23 fenofibrate nanocrystallized 145 145 mg PO DAILY 07/14/23 07/14/23 mg tablet glimepiride 1 mg tablet 2 mg PO DAILY 07/14/23 07/14/23 levothyroxine 137 mcg tablet 137 mcg PO DAILY 07/14/23 07/14/23 metoprolol tartrate 25 mg tablet 12.5 mg PO BID 07/14/23 07/14/23 omega-3 acid ethyl esters 1 gram 2 g PO DAILY 07/14/23 07/14/23 capsule rivaroxaban 15 mg tablet (Xarelto) 15 mg PO DAILY 07/14/23 07/14/23 Allergies Allergy/AdvReac Type Severity Reaction Status Date / Time No Known Allergies Allergy Verified 09/09/23 10:03 Review of Systems Review of Systems: All systems reviewed & are unremarkable except as noted in HPI and below Constitutional: Constitutional: Reports no additional constitutional complaints ENT: Reports dizziness, Reports nasal congestion and Denies sore throat Cardiovascular: Cardiovascular: Reports no additional cardiovascular complaints Respiratory: Respiratory: Reports no additional respiratory complaints Gastrointestinal: Gastrointestinal: Denies abdominal pain, Reports nausea and Reports vomiting Neurologic: Denies syncope, Denies headache(s), Denies focal weakness and Denies numbness PMF Past Medical History Medical History (Updated 09/09/23 @ 14:51 by Reji Helms MD) Benign prostatic hyperplasia Chronic kidney disease Diabetes mellitus Dyslipidemia Essential hypertension Glaucoma Hypothyroidism Thalassemia trait Surgical History Surgical History History of bilateral cataract extraction History of ventral hernia repair Family History Family History Sibling Patient's brother is in good health Father Family history of lung cancer Patient's father is Mother Family history of malignant neoplasm of breast in first degree relative Patient's mother is Other Family history of malignant neoplasm Social History Social History Social History: The patient lives in [place]. He has children but they are estranged. 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 Nonsmoker. Denies alcohol and illicit substance abuse. Surrogate decision maker: Anshu Silva (brother). Code status: Full code. Smoking status: Never smoker Alcohol intake: former Substance use: former Do You Feel Safe in your Home?: Yes Lack of Transportation: No Lack of Food: Never True Current Housing: I Have Housing Concerned About Future Housing: No Difficulty Paying Gas/Electric Bills: No Difficulty Paying for Meds: No Currently Unemployed: No Education: High School Diploma/GED Difficulty w/ Childcare or Family Care: No Spiritual care concerns: No Exam Narrative: GENERAL: Well-appearing, morbidly obese, and in no acute distress. HEAD: Normocephalic, atraumatic. EYES: PERRL and EOMI. ENT: Mucous me
--- NOTE | 2023-09-09 14:32 | PC.NURSE ---
attempted to get patient up out of bed to ambulate to evaluate dizziness. patient reports being dizzy laying in bed and does not want to attempt to get up. provider aware
[2023-09-09] MEDS: diazePAM INJ (*CRX) 10 MG/2 ML SYRINGE 5 MG IV PUSH (15:51)
--- NOTE | 2023-09-09 17:43 | ADMGEN ---
This patient, Carmelo Car, was admitted to 3 [facility] Surg Room 331-02. Patient/family oriented to hospital policies and general routines including ID bracelet, bed and alarms, visiting hours, pain management, procedures, bathroom and other care routines, personal items, smoking policy, room service/diet, and visiting hours. Information on how to activate the Rapid Response Team has been discussed. Patient/Family are encouraged to report perceived risks to care and to ask questions if they do not understand what they are told or what they should do.
[2023-09-09] MEDS: SODIUM CHLORIDE 0.9% IV 1,000 ML 125 ML IV CONT (18:09)
[2023-09-09] MEDS: MECLIZINE HCL 12.5 MG TABLET PO ×2 (18:10→20:31)
[2023-09-09 18:55] LABS: Glucose Point of Care 135 mg/dl (65-105)
[2023-09-09 20:41] LABS: Glucose Point of Care 112 mg/dl (65-105)
[2023-09-10] VITALS (13 sets, daily range): BP systolic 128–143; BP diastolic 59–84; PULSE 56–76; RESP 18–20; TEMP 36.5–36.9; O2SAT 96–98
[2023-09-10] MEDS: SODIUM CHLORIDE 0.9% IV 1,000 ML 125 ML IV CONT ×3 (02:35→12:21)
[2023-09-10 08:02] LABS: Glucose Point of Care 150 mg/dl (65-105)
[2023-09-10] MEDS: MECLIZINE HCL 12.5 MG TABLET PO ×4 (08:14→20:28)
--- NOTE | 2023-09-10 08:54 | PM.IMHP ---
H&P: HPI History of Present Illness Date/Time: 09/10/23 08:54 Chief Complaint: Dizziness Narrative: Patient is a 78-year-old male who presents ER with dizziness.? Reports he was at a sandwich shop and was eating a [employer] sandwich when he started feeling lightheaded.? The symptoms persisted and got up to walk around and felt worse.? The? EMS report was that he lost consciousness but he denies losing consciousness.? He reports dizziness intensified to where he was vomiting recurrently.? He was feeling diaphoretic at the time.? No diarrhea.? He reports some mild sinus congestion that began today.? No ringing in the ears.? No focal numbness or weakness to an arm or leg.? No slurred speech.? Patient is anticoagulated on Xarelto. He is feeling better today intermittent urinary Review of Systems Review of Systems: - CONSTITUTIONAL: Denies weight loss, fever and chills. - HEENT: Denies changes in vision and hearing - RESPIRATORY: Denies SOB and cough. - CV: Denies palpitations and CP. - GI: Denies abdominal pain, nausea, vomiting and diarrhea. - : Denies dysuria and urinary frequency. - MSK: Denies myalgia and joint pain. - SKIN: Denies rash and pruritus. - NEUROLOGICAL: Denies headache and syncope. - PSYCHIATRIC: Denies recent changes in mood. Denies anxiety and depression. [facility] Past Medical History Medical History (Updated 09/09/23 @ 14:51 by Reji Helms MD) Benign prostatic hyperplasia Chronic kidney disease Diabetes mellitus Dyslipidemia Essential hypertension Glaucoma Hypothyroidism Thalassemia trait Surgical History Surgical History History of bilateral cataract extraction History of ventral hernia repair Family History Family History Sibling Patient's brother is in good health Father Family history of lung cancer Patient's father is Mother Family history of malignant neoplasm of breast in first degree relative Patient's mother is Other Family history of malignant neoplasm Social History Social History Social History: The patient lives in [place]. He has children but they are estranged. 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 Nonsmoker. Denies alcohol and illicit substance abuse. Surrogate decision maker: Anshu Silva (brother). Code status: Full code. Smoking status: Never smoker Alcohol intake: former Substance use: former Do You Feel Safe in your Home?: Yes Lack of Transportation: No Lack of Food: Never True Current Housing: I Have Housing Concerned About Future Housing: No Difficulty Paying Gas/Electric Bills: No Difficulty Paying for Meds: No Currently Unemployed: No Education: High School Diploma/GED Difficulty w/ Childcare or Family Care: No Spiritual care concerns: No Meds Home Medications and Allergies Home Medications Medication Instructions Recorded Confirmed Type blood sugar diagnostic (OneTouch #1 [facility] 02/25/21 09/09/23 Rx Verio test strips) blood-glucose meter (OneTouch #1 [facility] 02/25/21 09/09/23 Rx Verio Flex Meter) lancets 30 gauge (OneTouch Delica #1 [facility] 02/25/21 09/09/23 Rx Plus Lancet) nitroglycerin 0.4 mg sublingual 0.4 mg sublingual Q5MIN PRN Chest 02/25/21 09/09/23 Rx tablet (Nitrostat) Pain #20 tabs amiodarone 200 mg tablet (Pacerone) 200 mg PO BID 07/14/23 09/09/23 History atorvastatin 40 mg tablet 80 mg PO DAILY 07/14/23 09/09/23 History fenofibrate nanocrystallized 145 145 mg PO DAILY 07/14/23 09/09/23 History mg tablet glimepiride 1 mg tablet 2 mg PO DAILY 07/14/23 09/09/23 History levothyroxine 137 mcg tablet 137 mcg PO DAILY 07/14/23 09/09/23 History metoprolol tartrate 25 mg tablet 12.5 mg PO BID 07/14/23 09/09/23 History omega-3 acid ethyl esters 1 gram 2 g PO DAILY 07/14/23 09/09/23 History
[2023-09-10] MEDS: AMIODARONE HCL 200 MG TABLET PO ×2 (09:29→17:22)
[2023-09-10] MEDS: OMEGA 3 POLYUNSAT FATTY ACIDS 1 GM CAP 2 GM PO (09:30)
[2023-09-10] MEDS: RIVAROXABAN 15 MG TABLET PO (09:30)
[2023-09-10] MEDS: GLIMEPIRIDE 2 MG TABLET PO (09:31)
[2023-09-10] MEDS: FENOFIBRATE NANOCRYSTALLIZED 145 MG TABLET PO (09:31)
[2023-09-10] MEDS: ATORVASTATIN 40 MG TABLET 80 MG PO (09:31)
[2023-09-10] MEDS: METOPROLOL TARTRATE 12.5 MG TABLET PO ×2 (09:31→17:21)
[2023-09-10 10:12] LABS: Appearance Urine Cloudy (Clear); Bacteria Urine 3+ /hpf; Bilirubin Urine Negative (Negative); Blood Urine 1+ (Negative); Color Urine Yellow (Yellow); Glucose Urine UA Negative (Negative); Ketones Urine Negative (Negative); Leukocyte Esterase Ur 2+ LEU/UL (NEGATIVE); Nitrate Urine Positive (Negative); Protein Urine 1+ mg/dL (Negative); RBC Urine 0-2 /hpf (0-2); Specific Grav Ur 1.017 (1.001-1.035); Squamous Epithelial Cell Urine None seen /hpf (Few); Urobilinogen Urine 0.2 mg/dL (<2.0); WBC Urine 51-100 /hpf (0-3)
[2023-09-10 10:23] LABS: Influenza A QL RT-PCR Negative (Negative); Influenza B QL RT-PCR Negative (Negative); RSV RNA, RT-PCR Negative (Negative); SARS-CoV-2 RNA PCR Negative (Negative)
[2023-09-10 10:23] LABS: Add Urine Microscopic? YES
[2023-09-10 11:08] LABS: Glucose Point of Care 142 mg/dl (65-105)
[2023-09-10 12:47] LABS: Prostate Specific Antigen 0.5 ng/mL (< OR = 4.0)
[2023-09-10 16:23] LABS: Glucose Point of Care 75 mg/dl (65-105)
[2023-09-10 19:44] LABS: Glucose Point of Care 201 mg/dl (65-105)
[2023-09-11] VITALS: PULSE 56
[2023-09-11 04:00] VITALS: PULSE 56
[2023-09-11] MEDS: LEVOTHYROXINE SODIUM 25 MCG TABLET PO (05:31)
[2023-09-11] MEDS: LEVOTHYROXINE SODIUM 112 MCG TABLET PO (05:32)
[2023-09-11 06:00] VITALS: BP 129/85; PULSE 60; RESP 18; TEMP 36.7; O2SAT 97
[2023-09-11 06:17] LABS: Basophils Absolute Auto 0.1 K/mm3 (0.0-0.1); Basophils Percent Auto 0.8 % (0.2-1.2); Eosinophils Absolute Auto 0.3 K/mm3 (0-0.3); Eosinophils Percent Auto 2.3 % (0-4.4); Hematocrit 43.9 % (42.0-52.0); Hemoglobin 13.1 g/dL (14.0-18.0); Immature Granulocyte Absolute 0.07 K/mm3 (0.00-0.031); Immature Granulocyte Percent A 0.6 % (0-0.5); Lymphocytes Absolute Auto 3.59 K/mm3 (0.9-3.2); Mean Corpuscular HGB Conc 29.8 g/dl (32-36); Mean Corpuscular Hemoglobin 27.2 pg (26-34); Mean Corpuscular Volume 91.1 fl (80-100); Mean Platelet Volume 9.7 fl (7.4-10.4); Monocytes Absolute Auto 0.8 K/mm3 (0.1-0.6); Monocytes Percent Auto 7.2 % (2.6-8.5); Neutrophils Absolute Auto 6.7 K/mm3 (1.3-6.7); Neutrophils Percent Auto 58.1 % (45.5-73.1); Platelet Count Result 202 k/mm3 (150-375); Red Blood Count 4.82 M/mm3 (4.6-6.20); Red Cell Distribution Width 16.6 % (11.5-14.5); White Blood Count 11.6 K/mm3 (4.5-10.0)
[2023-09-11 06:41] LABS: Alanine Aminotransferase 19 U/L (6-50); Albumin Level 3.8 g/dL (3.5-5.1); Alkaline Phosphatase 72 U/L (38-126); Anion Gap 7 mmol/L (8-16); Aspartate Amino Transferase 38 U/L (17-59); Bilirubin,Total 0.8 mg/dL (0.2-1.3); Blood Urea Nitrogen 22 mg/dL (9-20); Calcium 8.6 mg/dL (8.4-10.2); Carbon Dioxide 25 mmol/L (22-30); Chloride 108 mmol/L (98-107); Estimated CRCL calculation 55 ml/min; Estimated Glomerular Filt Rate 49; Glucose 144 mg/dL (65-110); Magnesium 2.1 mg/dL (1.6-2.3); Potassium 4.2 mmol/L (3.4-5.0); Sodium 140 mmol/L (137-145)
[2023-09-11 07:47] LABS: Glucose Point of Care 142 mg/dl (65-105)
[2023-09-11 08:08] VITALS: PULSE 61
[2023-09-11] MEDS: OMEGA 3 POLYUNSAT FATTY ACIDS 1 GM CAP 2 GM PO (08:08)
[2023-09-11] MEDS: AMIODARONE HCL 200 MG TABLET PO (08:08)
[2023-09-11] MEDS: MECLIZINE HCL 12.5 MG TABLET PO ×2 (08:08→12:06)
[2023-09-11 08:09] VITALS: PULSE 61
[2023-09-11] MEDS: RIVAROXABAN 15 MG TABLET PO (08:09)
[2023-09-11] MEDS: METOPROLOL TARTRATE 12.5 MG TABLET PO (08:09)
[2023-09-11] MEDS: TAMSULOSIN HCL 0.4 MG CAPSULE PO (08:09)
[2023-09-11] MEDS: ATORVASTATIN 40 MG TABLET 80 MG PO (08:09)
[2023-09-11] MEDS: GLIMEPIRIDE 2 MG TABLET PO (08:09)
[2023-09-11] MEDS: FENOFIBRATE NANOCRYSTALLIZED 145 MG TABLET PO (08:09)
[2023-09-11 08:10] VITALS: PULSE 56
[2023-09-11 11:28] LABS: Glucose Point of Care 124 mg/dl (65-105)
--- NOTE | 2023-09-11 13:51 | PM.DS ---
DS: Admitting Diagnosis Discharge Date 09/11/2023 Admitting Diagnosis Dizziness DS: Discharge Diagnosis Discharge Diagnosis (1) Vertigo: Code(s): R42 - Dizziness and giddiness Status: Acute DS: Summary Hospital Course Hospital Course: This is a 78-year-old male who presents to the ER with dizziness.? He was at sandwich shop and was eating a walters sandwich when he started feeling lightheaded.? Symptoms persisted and got up to walk around and felt worse.? EMS was called.? Will reported a loss consciousness momentarily.? He was also having recurrent vomiting was feeling diaphoretic at the time.? No diarrhea.? He reports some mild sinus congestion that started yesterday.? No tinnitus.? No focal weakness or numbness to her arms or legs no slurred speech.? Patient is chronically currently anticoagulated with Xarelto.? History of atrial fibrillation chronic kidney disease diabetes mellitus hypertension hyperlipidemia hypothyroidism.? On arrival to the ED is blood pressure was high other vitals were stable.? WBC was normal hemoglobin was 13.8 creatinine was 1.7 blood sugar was 304.? CT head was done which showed stable moderate nonspecific cerebral white matter disease which likely represent chronic small vessel ischemic disease.? EKG normal sinus rhythm with nonspecific ST-T changes.? He has underlying CKD stage 3 baseline creatinine running in high 1s to low 2s.? IV fluids has been started. He looked euvolemic and IV fluid was stopped.? Flu COVID RSV negative.? Urinalysis was checked which does indicate UTI.? He was started on ceftriaxone per previous urine cultures. He will be switched to cephalexin at discharge to complete the course. Renal ultrasound was obtained which showed mild hydronephrosis on right with moderate right renal atrophy with no obstructing stone evident. Left side kidney was normal without hydronephrosis. 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 His advised to follow-up with urology he may need further workup as an outpatient basis. His added on Flomax 0.4 mg daily. During hospital stay is dizziness has resolved completely and was ambulating well without any issues DVT prophylaxis on Xarelto Time Spent with Patient Time attestation: Total time spent providing and/or coordinating discharge services: 35 minutes Exam Narrative: GENERAL: Well-appearing,? morbidly obese, and in no acute distress. HEAD: Normocephalic, atraumatic. EYES: PERRL and EOMI. ENT:? Mucous membranes moist.? TMs normal bilaterally. NECK: Supple. CHEST: Clear to auscultation.? No respiratory distress. HEART: Regular rate and rhythm.? Normal peripheral pulses. ABDOMEN: Soft, nontender, nondistended. EXTREMITIES: Normal range of motion.? No edema. SKIN: Warm, dry, no rash. NEURO:? Alert and oriented x3. PSYCH: Normal mood and affect. DS: Data Data Completed and Pending Labs on day of discharge: Labs from last 24 hours 09/11/23 09/11/23 09/11/23 11:24 07:33 05:21 WBC 11.6 H RBC 4.82 Hgb 13.1 L Hct 43.9 MCV 91.1 MCH 27.2 MCHC 29.8 L RDW 16.6 H Plt Count 202 MPV 9.7 Immature Gran % (Auto) 0.6 H Neut % (Auto) 58.1 Lymph % (Auto) 31.0 [place] % (Auto) 7.2 Eos % (Auto) 2.3 Baso % (Auto) 0.8 Lymph # (Auto) 3.59 H [place] # (Auto) 0.8 H Eos # (Auto) 0.3 Baso # (Auto) 0.1 Abs Immat Gran (auto) 0.07 H Absolute Neuts (auto) 6.7 Absolute Nucleated RBC 0.0 Nucleated RBC % 0.0 Sodium 140 Potassium 4.2 Chloride 108 H Carbon Dioxide 25 Anion Gap 7 L BUN 22 H Creatinine 1.40 H Estim Creat Clear Calc 55 Estimated GFR 49 L Glucose 144 H POC Capillary Glucose 124 H 142 H Calcium 8.6 Magnesium 2.1 Total Bilirubin 0.8 AST 38 ALT 19 Alkaline Phosphatase 72 Total Protein 8.0 Albumin 3.8 09/10/23 09/10/23 19:37 16:20 WBC RBC Hgb Hct MCV MCH MCHC RDW Plt Count M
== END 2023-09-11 14:07 | disposition home or self-care (01) ==
LOC: ANHED 10:34 → ANH3MEDSUR 09-10 10:11
PROVIDERS: Admitting Provider Family Medicine; Emergency Provider Emergency Medicine; PCP Internal Medicine; Visit Provider Internal Medicine
DX: R42 Dizziness and giddiness (principal); N39.0 Urinary tract infection, site not specified; N13.39 Other hydronephrosis; R90.82 White matter disease, unspecified; R94.31 Abnormal electrocardiogram [ECG] [EKG]; I48.91 Unspecified atrial fibrillation; I12.9 Hypertensive chronic kidney disease with stage 1 through stage 4 chronic kidney disease, or unspecified chronic kidney disease; E08.22 Diabetes mellitus due to underlying condition with diabetic chronic kidney disease; N18.30 Chronic kidney disease, stage 3 unspecified; H40.9 Unspecified glaucoma; N40.0 Benign prostatic hyperplasia without lower urinary tract symptoms; E03.9 Hypothyroidism, unspecified; E78.5 Hyperlipidemia, unspecified; D56.3 Thalassemia minor; Z79.01 Long term (current) use of anticoagulants; Z20.822 Contact with and (suspected) exposure to COVID-19; Z79.84 Long term (current) use of oral hypoglycemic drugs; Z79.899 Other long term (current) drug therapy
CPT/HCPCS: 36415; 70450; 76775; 80053; 81001; 82948; 83735; 84153; 85025; 87637; 93005; 96360; 96361; 96365; 96366; 96374; 96376; 99285; A9270; G0378; J0696; J3360; J7030

== ENCOUNTER 2025-06-03 17:30 | Emergency (ER) | payer OTHER, SELFPAY ==
--- NOTE | ~2025-06-03 | CT_ITS ---
EXAMINATION: CT brain wo con DATE: 06/04/2025 01:25 INDICATION: Fall. TECHNIQUE: Computed tomography (CT) of the head was performed without intravenous contrast. The mA was adjusted according to patient size. Iterative reconstruction technique was employed. The dose-length product was 1059.33 mGy-cm. COMPARISON: Head CT 09/09/2023 FINDINGS: There is an acute intraparenchymal hematoma in the right basal ganglia and deep right frontal lobe white matter. There is an infarct involving the right basal ganglia. There are scattered areas of low attenuation in the cerebral white matter. There is no abnormal mass lesion. The ventricles are normal in size. There are likely changes of ocular lens replacement surgeries. There is mild mucosal thickening in the paranasal sinuses. The mastoid air cells are normal. IMPRESSION: 1. Acute intraparenchymal hematoma involving the right basal ganglia and deep right frontal lobe white matter. 2. Age-indeterminate infarct in the right basal ganglia, new from 09/09/2023. 3. Stable moderate nonspecific cerebral white matter disease, which likely represents chronic small vessel ischemic disease. Reviewed, dictated and finalized at location E. GROOVER IMPRESSION: 1. Acute intraparenchymal hematoma involving the right basal ganglia and deep r ight frontal lobe white matter. 2. Age-indeterminate infarct in the right basal ganglia, new from 09/09/2023. 3. Stable moderate nonspecific cerebral white matter disease, which likely repr esents chronic small vessel ischemic disease.
--- NOTE | ~2025-06-03 | XR_ITS ---
EXAMINATION: XR hip RT 2V w AP pelvis, 06/03/2025 18:40 NURSE LEADER HISTORY: fall COMPARISON: No comparisons available. Findings: No acute fracture or malalignment. No significant degenerative changes. Soft tissues unremarkable. Impression: No acute fracture or malalignment. Reviewed, dictated and finalized at location P. E LEADER Impression: No acute fracture or malalignment.
--- NOTE | ~2025-06-03 | CT_ITS ---
EXAMINATION: CT abdomen pelvis w con DATE: 06/04/2025 01:25 INDICATION: Sepsis. TECHNIQUE: Computed tomography (CT) of the abdomen and pelvis was performed with 100 mL Omnipaque 350 intravenous contrast. Automated exposure control and iterative reconstruction technique were employed. The dose-length product was 1599.59 mGy-cm. COMPARISON: CT abdomen and pelvis 12/28/2016 FINDINGS: The visualized portions of the lung bases demonstrate mild atelectasis. There is no pleural effusion. The heart size is normal. There are coronary artery calcifications. No pericardial effusion. The liver demonstrates surface nodularity, consistent with cirrhosis. The gallbladder, spleen, deal creas, and adrenal glands are normal. There is severe atrophy of right kidney. There is mild right hydronephrosis. There is a 1.4 cm stone in proximal right ureter. There is cortical thinning of left kidney. The appendix is normal. There are no dilated loops of bowel. There is an infraumbilical ventral hernia containing nonobstructed small bowel. There are no pathologically enlarged lymph nodes. There is no free intraperitoneal fluid. There is severe lumbar spondylosis and mild thoracic spondylosis. IMPRESSION: 1. Infraumbilical ventral hernia containing nonobstructed small bowel. 2. 1.4 cm stone in proximal right ureter. Mild right hydronephrosis and severe right kidney atrophy. 3. Liver surface nodularity suspicious for cirrhosis. Reviewed, dictated and finalized at location E. ETICIAN FACIALIST
--- NOTE | ~2025-06-03 | XR_ITS ---
EXAMINATION: XR chest 1V, 06/03/2025 18:40 REGIONAL SALES COORDINATOR HISTORY: SOB COMPARISON: No comparisons available. Technique: Single view. Findings: Mild pulmonary venous congestion. Small basilar infiltrates and small right effusion. No pneumothorax. Mild cardiomegaly. Mediastinal and hilar contours are within normal limits. Bony thorax no acute abnormality. Impression: CHF. Superimposed probable right lower lobe pneumonia Reviewed, dictated and finalized at location P. ONAL SALES COORDINATOR Impression: CHF. Superimposed probable right lower lobe pneumonia
--- NOTE | ~2025-06-03 | XR_ITS ---
Examination: XR elbow RT min 3V Clinical History: R arm pain Comparison: None Technique: 3 views right elbow Findings/impression: 1. No fracture or dislocation right elbow. Reviewed, dictated and finalized at location R. NCT PROFESSOR OF LAW
--- NOTE | ~2025-06-03 | CT_ITS ---
EXAMINATION:CT diagnostic chest wo con DATE: 06/03/2025 20:13 INDICATION: CHF TECHNIQUE: Computed tomography (CT) of the chest was performed without intravenous contrast. The dose-length product (DLP) was 911.90 mGy-cm. COMPARISON: None. FINDINGS: No consolidation effusion pneumothorax or pulmonary edema. Heart size borderline enlarged. No significant pericardial effusion or bulky lymphadenopathy. 1.3 cm right lower lobe nodule image 51 series 4. No acute or aggressive bony changes. Visualized portions of the upper abdomen and extrathoracic soft tissues unremarkable. IMPRESSION: 1. 1.3 cm right lower lobe nodule. Correlate with PET/CT. 2. No evidence of pulmonary edema or consolidation. NOTE: Preliminary radiologist interpretation provided by [facility] radiologist/physician. Reviewed, dictated and finalized at location A. MENT PHOTOGRAPHER IMPRESSION: 1. 1.3 cm right lower lobe nodule. Correlate with PET/CT. 2. No evidence of pulmonary edema or consolidation. NOTE: Preliminary radiologist interpretation provided by [facility] radiologist/sherri ferrari.
--- NOTE | ~2025-06-03 | XR_ITS ---
EXAMINATION: XR shoulder RT min 2V, 06/03/2025 18:40 PIN DRAFTER OPERATOR HISTORY: fall COMPARISON: No comparisons available. Findings: No acute fracture or malalignment. Moderate degenerative changes Soft tissues unremarkable. Impression: No acute fracture or malalignment. Reviewed, dictated and finalized at location P. DRAFTER OPERATOR Impression: No acute fracture or malalignment.
[2025-06-03 17:32] VITALS: TEMP 36.9
--- NOTE | 2025-06-03 17:57 | ECG_ITS ---
Test Date: 2025-06-03 18:09:03 Measurements Intervals [place] Rate: 130 P: 0 SD: 0 QRS: -3 QRSD: 96 T: 131 QT: 337 QTc: 496 Interpretive Statements ATRIAL FIBRILLATION WITH RAPID VENTRICULAR RESPONSE ST DEVIATION AND T-WAVE ABNORMALITY, CONSIDER ISCHEMIA Electronically Signed On 06-04-2025 00:12:[address] by David Kirk D.O
[2025-06-03 17:58] VITALS: BP 121/80; PULSE 139; RESP 22; O2SAT 97
[2025-06-03 18:26] LABS: Hematocrit 54.5 % (42.0-52.0); Hemoglobin 16.7 g/dL (14.0-18.0); Immature Granulocyte Percent A 0.7 % (0-0.5); Lymphocytes Absolute Auto 2.54 K/mm3 (0.9-3.2); Mean Corpuscular HGB Conc 30.6 g/dl (32-36); Mean Corpuscular Hemoglobin 27.2 pg (26-34); Mean Corpuscular Volume 88.6 fl (80-100); Nucleated Red Blood Cells Absolute Auto 0.000 K/mm3 (0.0-0.012); Nucleated Red Blood Cells Perc 0.0 % (0.0-0.2); Platelet Count Result 270 k/mm3 (150-375); Red Blood Count 6.15 M/mm3 (4.6-6.20); White Blood Count 17.5 K/mm3 (4.5-10.0)
[2025-06-03 18:38] LABS: Alanine Aminotransferase 32 U/L (6-50); Albumin Level 4.4 g/dL (3.5-5.1); Alkaline Phosphatase 107 U/L (38-126); Anion Gap 13 mmol/L (4-12); Aspartate Amino Transferase 49 U/L (17-59); Bilirubin,Total 1.2 mg/dL (0.2-1.3); Blood Urea Nitrogen 35 mg/dL (9-20); Calcium 9.5 mg/dL (8.4-10.2); Carbon Dioxide 25 mmol/L (22-30); Chloride 105 mmol/L (98-107); Estimated CRCL calculation 49 ml/min; Estimated Glomerular Filt Rate 43; Glucose 303 mg/dL (65-110); Potassium 4.5 mmol/L (3.4-5.0); Sodium 143 mmol/L (137-145); Total Protein 9.6 g/dL (6.3-8.2)
[2025-06-03 18:43] LABS: INR 1.4; Prothrombin Time 16.6 Seconds (11.1-14.7)
[2025-06-03 18:44] LABS: Partial Thromboplastin Time 28.0 Seconds (22.3-36.8)
[2025-06-03 18:49] LABS: NT Pro B Type Natriuretic Pept 2190 pg/mL (19.9-100); Troponin I 0.030 ng/mL (0.000-0.034)
[2025-06-03 19:04] VITALS: BP 115/78; PULSE 133; RESP 26; O2SAT 94
[2025-06-03 19:05] VITALS: PULSE 124
--- NOTE | 2025-06-03 19:28 | ED.GENADULT ---
HPI - General Adult General Chief complaint: Weakness Stated complaint: the weakness Time Seen by Provider: 06/03/25 18:48 History of Present Illness HPI narrative: This is a 80-year-old male with chief complaint of weakness. Patient says that he has felt weak all day today. He had a fall down the stairs when he lost his balance. He landed on his right shoulder and now has exquisite pain shoulder. He did not strike his lose consciousness. Patient says he has felt weak but does not have any other symptoms such as fevers, chills chest pain difficulty breathing abdominal pain urinary symptoms nausea vomiting or diarrhea. Per EMS the patient was found living in [facility]. He was covered in his own feces and urine. House was in disarray. They voiced concerns that the patient is not capable of living on his own anymore. Related Data Home Medications ?Medication ?Instructions ?Recorded ?Confirmed ?Last Taken ?Type amiodarone 200 mg tablet (Pacerone) 200 mg PO BID 07/14/23 09/09/23 Unknown History atorvastatin 40 mg tablet 80 mg PO DAILY 07/14/23 09/09/23 Unknown History fenofibrate nanocrystallized 145 145 mg PO DAILY 07/14/23 09/09/23 Unknown History mg tablet glimepiride 1 mg tablet 2 mg PO DAILY 07/14/23 09/09/23 Unknown History levothyroxine 137 mcg tablet 137 mcg PO DAILY 07/14/23 09/09/23 Unknown History metoprolol tartrate 25 mg tablet 12.5 mg PO BID 07/14/23 09/09/23 Unknown History omega-3 acid ethyl esters 1 gram 2 g PO DAILY 07/14/23 09/09/23 Unknown History capsule rivaroxaban 15 mg tablet (Xarelto) 15 mg PO DAILY 07/14/23 09/09/23 Unknown History Allergies Allergy/AdvReac Type Severity Reaction Status Date / Time No Known Allergies Allergy Verified 09/09/23 10:03 [facility] Past Medical History Medical History (Updated 06/04/25 @ 02:20 by Chavo Vasquez MD) Diabetes mellitus Chronic kidney disease Dyslipidemia Hypothyroidism Glaucoma Benign prostatic hyperplasia Essential hypertension Thalassemia trait Surgical History Surgical History History of ventral hernia repair History of bilateral cataract extraction Family History Family History Sibling Patient's brother is in good health Father Family history of lung cancer Patient's father is Mother Family history of malignant neoplasm of breast in first degree relative Patient's mother is Other Family history of malignant neoplasm Social History Social History Social History: The patient lives in [place]. He has children but they are estranged. 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 Nonsmoker. Denies alcohol and illicit substance abuse. Surrogate decision maker: Anshu Silva (brother). Code status: Full code. Smoking status: Never smoker Alcohol intake: former Substance use: former Do You Feel Safe in your Home?: Yes Lack of Transportation: No Lack of Food: Never True Current Housing: I Have Housing Concerned About Future Housing: No Difficulty Paying Gas/Electric Bills: No Difficulty Paying for Meds: No Currently Unemployed: No Education: High School Diploma/GED Difficulty w/ Childcare or Family Care: No Spiritual care concerns: No Exam Narrative: APPEARANCE: No apparent distress. A&O x2 Head: atraumatic. EYES: EOMI, NOSE: Atraumatic NECK: Trachea midline RESPIRATORY: mildly tachypneic,Scattered crackles, saturating well on room air CARDIOVASCULAR: tachycardic, irregular,peripheral edema ABDOMINAL: obese, nontender MUSCULOSKELETAl: No obvious deformities NEURO: Alert. Cranial nerves 2-12 grossly intact. Sensation light touch, motor function cerebellar function intact for 4 extremities. Gait exam was deferred. SKIN:: Warm, dry. Normal color PSYCHIATRIC: Normal affect Course Vital Signs Vital signs: Vital Signs Temperature 98.5 F 06/03/25 17:32 Temperature 98.5 F 06/03/25 17:32 Pulse Rate 90 06/03/25 20:00 Respiratory Rate 26 H 06/03/25 19:04 Blood Pressure 115/78 06/03/25 19:04 Pulse Oximetry 94 06/03/25 19:04 Medical Decision Making MDM Narrative Medical decision making narrative: -Course: 80-year-old male presenting with generalized weakness and a fall. Patient was in afib w/ rvr on arrival and previous physician loaded patient with amiodarone as that was on his med list. Physical exam is significant pain to the right shoulder. Imaging of the shoulder and elbow were negative for acute fractures. Patient is significantly tender at the humeral neck and I attempted order a CT to evaluate for occult fracture, however due to the patient's size the orthotics technician was unable to perform the scan. Part of the humeral head/neck was caught on the CT diagnostic chest which did not appear fractured. Patient's white count is elevated at 17.5. Chest x-ray was initially read as CHF with superimposed pneumonia. Patient started on ceftriaxone and doxycycline. Lactic elevated 4.3. Cautious fluid resuscitation due to possible history of congestive heart failure. Patient does not have any respiratory symptoms and a CT of the chest was ordered to evaluate for traumatic injury and pneumonia/CHF. CT of the chest did not reveal any signs of pneumonia/congestive heart failure. CT of the head showed a right-sided basal ganglia intraparenchymal hemorrhage. Patient does not have signs of trauma to his head. His neurologic exam is not have any focal deficits although he is AO x2 and it is unclear what his baseline is. Patient will be transferred PT see ED to ED for further management intraparenchymal hemorrhage. Accepted by Dr. Nunez. Vital Signs Vital Signs: Vital Signs Temperature 98.5 F 06/03/25 17:32 Temperature 98.5 F 06/03/25 17:32 Pulse Rate 90 06/03/25 20:00 Respiratory Rate 26 H 06/03/25 19:04 Blood Pressure 115/78 06/03/25 19:04 Pulse Oximetry 94 06/03/25 19:04 Lab Data 06/03/25 18:14 06/03/25 18:14 Labs: Lab Results 06/03/25 06/03/25 06/03/25 Range/Units 18:14 18:17 19:24 WBC 17.5 H (4.5-10.0) K/mm3 RBC 6.15 (4.6-6.20) M/mm3 Hgb 16.7 D (14.0-18.0) g/dL Hct 54.5 H (42.0-52.0) % MCV 88.6 (80-100) fl MCH 27.2 (26-34) pg MCHC 30.6 L (32-36) g/dl RDW 17.6 H (11.5-14.5) % Plt Count 270 (150-375) k/mm3 MPV 9.2 (7.4-10.4) fl Immature Gran % (Auto) 0.7 H (0-0.5) % Neut % (Auto) 77.6 H (45.5-73.1) % Lymph % (Auto) 14.5 L (18.3-44.2) % [place] % (Auto) 6.2 (2.6-8.5) % Eos % (Auto) 0.6 (0-4.4) % Baso % (Auto) 0.4 (0.2-1.2) % Lymph # (Auto) 2.54 (0.9-3.2) K/mm3 [place] # (Auto) 1.1 H (0.1-0.6) K/mm3 Eos # (Auto) 0.1 (0-0.3) K/mm3 Baso # (Auto) 0.1 (0.0-0.1) K/mm3 Abs Immat Gran (auto) 0.12 H (0.00-0.031) K/mm3 Absolute Neuts (auto) 13.6 H (1.3-6.7) K/mm3 Absolute Nucleated RBC 0.000 (0.0-0.012) K/mm3 Nucleated RBC % 0.0 (0.0-0.2) % PT 16.6 H (11.1-14.7) Seconds INR 1.4 APTT 28.0 (22.3-36.8) Seconds Sodium 143 (137-145) mmol/L Potassium 4.5 (3.4-5.0) mmol/L Chloride 105 (98-107) mmol/L Carbon Dioxide 25 (22-30) mmol/L Anion Gap 13 H (4-12) mmol/L BUN 35 H D (9-20) mg/dL Creatinine 1.57 H (0.7-1.3) mg/dL Estim Creat Clear Calc 49 ml/min Estimated GFR 43 L (59 - ) Glucose 303 H (65-110) mg/dL Lactic Acid 3.7 H (0.7-2.0) mmol/L Calcium 9.5 (8.4-10.2) mg/dL Total Bilirubin 1.2 (0.2-1.3) mg/dL AST 49 (17-59) U/L ALT 32 (6-50) U/L Alkaline Phosphatase 107 (38-126) U/L Troponin I 0.030 (0.000-0.034) ng/mL NT-Pro-B Natriuret Pep 2190 H (19.9-100) pg/mL Total Protein 9.6 H (6.3-8.2) g/dL Albumin 4.4 (3.5-5.1) g/dL Urine Color Urine Appearance Urine pH Ur Specific [place] Urine Protein Urine Glucose (UA) Urine Ketones Ur Blood (Man) Urine Nitrate Urine Bilirubin Urine Urobilinogen Leukocyte Esterase Rfl Influenza A (RT-PCR) Negative (Negative) Influenza B (RT-PCR) Negative (Negative) RSV (RT-PCR) Negative (Negative) SARS-CoV-2 RNA (RT-PCR) Negative (Negative) 06/03/25 06/03/25 Range/Units 21:58 22:23 WBC (4.5-10.0) K/mm3 RBC (4.6-6.20) M/mm3 Hgb (14.0-18.0) g/dL Hct (42.0-52.0) % MCV (80-100) fl MCH (26-34) pg MCHC (32-36) g/dl RDW (11.5-14.5) % Plt Count (150-375) k/mm3 MPV (7.4-10.4) fl Immature Gran % (Auto) (0-0.5) % Neut % (Auto) (45.5-73.1) % Lymph % (Auto) (18.3-44.2) % [place] % (Auto) (2.6-8.5) % Eos % (Auto) (0-4.4) % Baso % (Auto) (0.2-1.2) % Lymph # (Auto) (0.9-3.2) K/mm3 [place] # (Auto) (0.1-0.6) K/mm3 Eos # (Auto) (0-0.3) K/mm3 Baso # (Auto) (0.0-0.1) K/mm3 Abs Immat Gran (auto) (0.00-0.031) K/mm3 Absolute Neuts (auto) (1.3-6.7) K/mm3 Absolute Nucleated RBC (0.0-0.012) K/mm3 Nucleated RBC % (0.0-0.2) % PT (11.1-14.7) Seconds INR APTT (22.3-36.8) Seconds Sodium (137-145) mmol/L Potassium (3.4-5.0) mmol/L Chloride (98-107) mmol/L Carbon Dioxide (22-30) mmol/L Anion Gap (4-12) mmol/L BUN (9-20) mg/dL Creatinine (0.7-1.3) mg/dL Estim Creat Clear Calc ml/min Estimated GFR (59 - ) Glucose (65-110) mg/dL Lactic Acid 3.1 H (0.7-2.0) mmol/L Calcium (8.4-10.2) mg/dL Total Bilirubin (0.2-1.3) mg/dL AST (17-59) U/L ALT (6-50) U/L Alkaline Phosphatase (38-126) U/L Troponin I (0.000-0.034) ng/mL NT-Pro-B Natriuret Pep (19.9-100) pg/mL Total Protein (6.3-8.2) g/dL Albumin (3.5-5.1) g/dL Urine Color Pending Urine Appearance Pending Urine pH Pending Ur Specific [place] Pending Urine Protein Pending Urine Glucose (UA) Pending Urine Ketones Pending Ur Blood (Man) Pending Urine Nitrate Pending Urine Bilirubin Pending Urine Urobilinogen Pending Leukocyte Esterase Rfl Pending Influenza A (RT-PCR) (Negative) Influenza B (RT-PCR) (Negative) RSV (RT-PCR) (Negative) SARS-CoV-2 RNA (RT-PCR) (Negative) Discharge Plan Discharge Clinical Impression: Intraparenchymal hemorrhage of brain, Leukocytosis, A-fib, Altered mental status Patient Disposition: Home Condition: Stable Instructions: Antibiotic Form Patient Language: Occitan Prescriptions: No Action meclizine 12.5 mg Tablet 12.5 mg PO QID PRN (Reason: dizziness) Qty: 20 0RF tamsulosin 0.4 mg Capsule 0.4 mg PO QAM Qty: 30 0RF cephalexin 500 mg capsule 500 mg PO Q12H Qty: 10 0RF nitroglycerin [Nitrostat] 0.4 mg Tablet, Sublingual 0.4 mg sublingual Q5MIN PRN (Reason: Chest Pain) Qty: 20 1RF (DME) blood-glucose meter [[employer] Verio Flex meter] [facility] [place] Qty: 1 0RF Rx Instructions: May substitute to in-stock meter and/or covered by insurance. Use As Directed (DME) [employer] Verio test strips Strip Qty: 1 0RF Rx Instructions: May substitute to in-stock and/or covered by insurance strips. Use As Directed (DME) lancets [[employer] Delica Plus Lancet] 30 gauge [facility] [place] Qty: 1 0RF Rx Instructions: May substitute to in-stock and/or covered by insurance lancets. Use As Directed levothyroxine 137 mcg Tablet 137 mcg PO DAILY fenofibrate nanocrystallized 145 mg Tablet 145 mg PO DAILY atorvastatin 40 mg tablet 80 mg PO DAILY amiodarone [Pacerone] 200 mg tablet 200 mg PO BID glimepiride 1 mg tablet 2 mg PO DAILY metoprolol tartrate 25 mg tablet 12.5 mg PO BID omega-3 acid ethyl esters 1 gram capsule 2 g PO DAILY Xarelto 15 mg tablet 15 mg PO DAILY Follow-up/Referrals: Yamilka,JOSE ANGEL Prado [Primary Care Provider]
--- OUTSIDE RECORDS SUMMARY | 2025-06-03 19:28 | XMS_ITS | Clinical Summary ---
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
--- OUTSIDE RECORDS SUMMARY | 2025-06-03 19:28 | XMS_ITS | Clinical Summary ---
Author Organization [facility] Address [address] [place] [id number] Phone Care Team Providers Care Aircraft Ordnance Systems Mechanic Name Role Phone Unavailable Primary Care Provider Unavailabl e Medications levothyroxine (SYNTHROID, LEVOTHROID) 50 MCG tablet 07/26/2015 Active potassium chloride (KLOR-CON) 20 MEQ CR tablet 1 dialy 07/26/2015 Activ e fluticasone (FLONASE) 50 MCG/ACT nasal spray prn 07/26/2015 Active testosterone cypionate (DEPO-TESTOTERON E) 200 MG/ML injection q3wk 07/26/2015 Active Active Problems Problem Noted Date Diagnosed Date Type 2 diabetes mellitus without complication Other specified abnormal finding of blood chemis try 07/29/2015 Essential (primary) hypertension 07/29/2015 Family History Medical History Relation Comments Malignant neoplastic disease Father Malignant neoplastic disease Mother Kidney disease Neg Hx Kidney stone Neg Hx Relation Status Comments Father Mother Social History Tobacco Use Types Packs/Day Years Used Date Smoking Tobacco: Never Assessed Sex and Gender Information Value Date Recorded Sex Assigned at Not on file Legal Sex Male 10:03 AM MST Gender Identity Not on file Sexual Orientation Not on file Last Filed Vital Signs Vital Sign Reading Time Taken Comments Blood Pressure 138/80 07/29/2015 12:01 AM UTILITY SYSTEM OPERATOR Pulse 72 07/29/2015 12:01 AM UTILITY SYSTEM OPERATOR Temperature 37.4 C (99.4 F) 07/29/2015 12:01 AM UTILITY SYSTEM OPERATOR Respiratory Rate - - Oxygen Saturation - - Inhaled Oxygen Concentration - - Weight 116 kg (256 lb) 07/29/2015 12:01 AM UTILITY SYSTEM OPERATOR Height 172.7 cm (5' 8) 07/29/2015 12:01 AM UTILITY SYSTEM OPERATOR Body Mass Index 38.92 07/29/2015 12:01 AM UTILITY SYSTEM OPERATOR Plan of Treatment Not on file
--- OUTSIDE RECORDS SUMMARY | 2025-06-03 19:28 | XMS_ITS | Clinical Summary ---
Author Organization [facility] Address [facility] [place] [address] Care Team Providers Care Law Secretary Name Role Phone Lalit Arredondo MD Primary Care Provider [phone] Medications nitroglycerin (NITROSTAT) 0.4 MG SL tabletIndicatio ns:Angina pectoris PLACE 1 TABLET UNDER THE TONGUE EVERY 5 MINUTES NEEDED FOR CHEST PAIN. 60 tablet 10/06/2023 Active amiodarone (PACERONE) 200 MG tablet Take 1 tablet (200 mg total) by mouth 2 (two) times daily. 08/20/2023 Active atorvastatin (LIPITOR) 80 MG tablet Take 1 tablet (80 mg total) by mouth daily. 05/17/2023 Active fenofibrate (TRICOR) 145 MG tablet Take 1 tablet (145 mg total) by mouth daily. 03/09/2023 Active glimepiride (AMARYL) 2 MG tablet Take 1 tablet (2 mg total) by mouth before breakfast. 01/01/2023 Active levothyroxine (SYNTHROID) 125 MCG tablet Take 1 tablet (125 mcg total) by mouth daily. 09/23/2023 Active XARELTO 15 MG tablet Take 1 tablet (15 mg total) by mouth daily. Active tamsulosin (FLOMAX) 0.4 MG Cap Take 1 capsule (0.4 mg total) by mouth every morning. 09/11/2023 Active Active Problems Problem Noted Date Diagnosed Date Congestion of nasal sinus 05/25/2023 CKD (chronic kidney disease) stage 3, GFR 30-59 ml/min 09/15/2022 Serum creatinine raised 09/15/2022 Morbid obesity with body mass index of 40.0-44.9 in adult 06/02/2022 Overview (03/23/2024): Last Assessment & Plan: Discussed the patients BMI: The BMI is above average BMI management is complete. BMI follow-up includes: Nutrition Counseling and education provided Cellulitis of external nose 01/05/2022 Overview (03/23/2024): Last Assessment & Plan: Advised warm compress/wash cloth to area bid 10min for the next week. Advised f/u in 72h if not improving, sooner if worsening. Hyperlipidemia 08/25/2021 Pseudophakia 05/23/2021 Vitreous detachment, bilateral 05/23/2021 Acute meniscal tear of left knee 04/22/2021 Renal insufficiency syndrome 04/22/2021 Overview (03/23/2024): Last Assessment & Plan: Stable, continue care same at this time Atrial fibrillation 03/25/2021 Overview (03/23/2024): Last Assessment & Plan: Continue meds same at this time. Advised cv referral, he declines at this time. History of AK (myocardial infarction) 03/25/2021 Overview (03/23/2024): Last Assessment & Plan: Stable, continue care same at this time Osteoarthrosis 03/25/2021 Overview (03/23/2024): Last Assessment & Plan: Stable, continue care same at this time Other specified abnormal findings of blood chemi stry 07/29/2015 Hypertension associated with diabetes 07/29/2015 Overview (03/23/2024): Last Assessment & Plan: Patient advised to continue medications the same at this time. They will monitor home bp with goal 120-130/80s. labs entered, will notify patient of results as available Type 2 diabetes mellitus without complication Overview (03/23/2024): Last Assessment & Plan: Will increase amaryl from 2mg every day to 3mg every day. Patient advised goal glucose fasting 80-120. They were reminded to contact the office if having difficulty keeping sugar in goal ranges. They were advised to not skip meals and maintain a heart healthy diet (cut back on processed foods, red meat, fried foods). They were reminded to exercise 4x/week for 30min each session. Fasting labs entered, will notify patient of results as available Disorder of refraction and accommodation 014 Nuclear senile cataract 05/24/2014 Acute upper respiratory infection 01/23/2013 Hypothyroidism 12/01/2012 Overview (03/23/2024): Last Assessment & Plan: labs entered, will notify patient of results as available Knee pain, right 11/15/2012 Immunizations Immunization Administration Dates Next Due Pneumococcal (Prevnar 13) 04/22/2021 Tdap (Generic) 12/26/2008 Social History Tobacco Use Types Packs/Day Years Used Date Smoking Tobacco: Never Assessed Sex and Gender Information Value Date Recorded Sex Assigned at Not on file Legal Sex Male 4:14 PM CDT Gender Identity Not on file Sexual Orientation Not on file Last Filed Vital Signs Vital Sign Reading Time Taken Comments Blood Pressure 166/88 11/15/2012 2:27 PM CDT Pulse 71 11/15/2012 2:27 PM CDT Temperature - - Respiratory Rate - - Oxygen Saturation - - Inhaled Oxygen Concentration - - Weight 136.1 kg (300 lb) 11/15/2012 2:27 PM CDT Height 175.3 cm (5' 9) 11/15/2012 2:27 PM CDT Body Mass Index 44.3 11/15/2012 2:27 PM CDT Plan of Treatment Health Maintenance Due Date Last Done Comments Kidney Health Evaluation 1945 Hepatitis C 1965 Zoster Vaccines (1 of 2) 1997 Annual Medicare Wellness Visit 2012 ASCVD LDL 11/15/2013 11/15/2012 Lipid Panel 11/15/2013 11/15/2012 DTaP, Tdap and Td Vaccines ( 2 - Td or Tdap) 12/26/2018 12/26/2008 Pneumococcal Vaccine: 50+ Years (2 of 2 - PPSV23, PCV20, or PCV21) 06/17/2021 04/22/2021 Hemoglobin A1C 10/05/2021 04/07/2021 RSV Immunization or 60+ Years (1 - 1-dose 75+ series) 2022 PHQ-2 (Physician [place]) 07/19/2024 COVID-19 Vaccine (3 - 2024-2 6 season) 2025 10/05/2020, 09/14/2020 Influenza Adult (#1) 2025 Diabetes: Retinopathy Eye Exam 10/31/2025 11/01/2023 Hepatitis A Vaccines Aged Out No long er eligible based on patient's age to complete this topic Meningococcal B Vaccine Aged Out No l onger eligible based on patient's age to complete this topic Meningococcal Vaccine Aged Out No aj irvin eligible based on patient's age to complete this topic RSV Immunizations Under 20 Months Aged Out No longer eligible b ased on patient's age to complete this topic Procedures Procedure Name Priority Date/Time Associated Diagnosis Comments DIABETIC RETINOPATHY EXAM (NEGATIVE)(SCAN ORDER) Routine 11/01/2023 LIPID PANEL Routine 11/15/2012 3:25 PM CDT from Last 3 Months or Most Recently Relevant to Health Maintenance Results * DIABETIC RETINOPATHY EXAM (NEGATIVE) (11/01/2023) [facility] Scanned SCANNING Final Resu lt [facility] ONBASE * (ABNORMAL) LIPID PANEL (11/15/2012 3:25 PM CDT) CHOLESTEROL 209(H) <200 mg/dL [facility] TO EPIC CONVERSION TRIGLYCERIDES 253(H) <150 mg/dL [facility] TO EPIC CONVERSION HDL 48(L) >59 mg/dL [facility] TO EPIC CONVERSION LDL (CALCULATED) 110(H) <100 mg/dL [facility] TO EPIC CONVERSION NON HDL CHOLESTEROL 161(H) <130 mg/dL [facility] TO EPIC CONVERSION Comment: Result Comment: NOTE: WHEN THE TRIGLYCERIDES ARE >200 mg/dL, NON HDL C IS A SECONDARY TARGET OF THERAPY, WITH A GOAL 30 mg/dL HIGHER THAN THE IDENTIFIED LDL C GOAL. CHOL/HDL RATIO 4.4 0.0 - 4.5 [facility] TO EPIC CONVERSION VLDL CHOLESTEROL (LMP) 51 5 - 55 mg/dL [facility] TO EPIC CONVERSION LIPID INTERPRETATION NIH CONCENSUS REPORT RECOMMENDATI ONS: ADULT CHILD LOW RISK: CHOLESTEROL <200 <170 TRIGLYCERIDE <150 --- HDL >=60 --- LDL <100 <110 BORDERLINE: CHOLESTEROL 200-239 170-199 TRIGLYCERIDE 150-199 --- HDL 40-59 --- LDL 100-159 110-129 HIGH RISK: CHOLESTEROL >=240 >=200 TRIGLYCERIDE >=200 --- HDL <40 --- LDL >=160 >=130 [facility] TO EPIC CONVERSION 11/15/2012 3:25 PM CDT 11/15/2012 3:25 PM CDT Narrative [facility] TO EPIC CONVERSION - 11/15/2012 9:05 PM CDT Result Communication: Call patient with results Lalit Arredondo MD LABORATORY Final Result Performing Organization Address City/State/[facility] Co de Phone Number [facility] TO EPIC CONVERSION from Last 3 Months or Most Recently Relevant to Health Maintenance Insurance [employer] Care Teams Law Secretary Relationship Specialty Start Date End Date Lalit Arredondo MD [address] [place] [address] PCP - General 01/23/13
--- OUTSIDE RECORDS SUMMARY | 2025-06-03 19:28 | XMS_ITS ---
Author Name Katie HURD, MRS. [facility] np[facility] Address [address] [place] [address] Phone [phone] Organization [facility] ([facility]) Care Team Providers Care Boiler/Chiller Technician Name Role Phone Tomer Wilson Unavailable [phone] Eve Prather Unavailable [phone] Reason for Referral Not Available Allergies, adverse reactions, alerts No known allergies History of medication use Medication Class Instructions Start Date End Date Nitroglycerin 0.4 mg Tab Sublingual 1 tablet sublingually every 5 minutes as needed 2025-01-23 No Data Available Problem List Problem Status Onset Date Resolved Date Synopsis Morbid obesity Active 2025-01-23 N/A N/A CAD (coronary artery disease) Active 2025-01-23 N/A history of SD 2020 Elevated BP without diagnosi s of hypertension Active 2025-01-23 N/A N/A Encounters Encounters Type Facility Date of Service Diagnosis/Co mplaint Home visit for evaluation and management of new patient requiring medically appropriate examination and low level of medical decision making. If using time, at least 30 minutes total time on encounter [facility] [place] 01/23/2025 Morbid (severe) obes ity due to excess caloriesAthscl heart disease of [place] coronary artery w/o ang pctrsElevated blood-pressure reading, without diagnosis of hypertensionBody mass index (BMI) 40.0-44.9, adult Home visit for evaluation and management of new patient requiring medically appropriate examination and low level of medical decision making. If using time, at least 30 minutes total time on encounter [facility] [place] 01/23/2025 Morbid (severe) obes ity due to excess calories Home visit for evaluation and management of new patient requiring medically appropriate examination and low level of medical decision making. If using time, at least 30 minutes total time on encounter [facility] [place] 01/23/2025 Morbid (severe) obes ity due to excess calories Vital Signs Date of Collection Vitals 2025-01-23 11:22:00 Height - 175.26 cmWe ight - 127.46 kgBody Mass Index (BMI) - 41.5 kg/m2BP Diastolic - 90.0 mm[Hg]BP Systolic - 150.0 mm[Hg]Heart Rate - 64.0 /minRespiratory Rate - 18.0 /minO2 % BldC Oximetry - 95.0 % Social History Sex Male History of Procedures Procedures Service Procedure code Service date Servicing provider Phone# Home visit for evaluation and management of new patient requiring medically appropriate examination and low level of medical decision making. If using time, at least 30 minutes total time on encounter [id number] 2025-01-23 No Data Available No Data Availa ble Advance care planning discussion documented in medical record [id number] 2025-01-23 No Data Available No Data Avai lable Patient screened for fall risk; no falls in the last year or 1 fall with no injury in the last year [id number] 2025-01-23 No Data Available No Data Avail able Functional Status Functional Category Effective Dates lives alone 2025-01-[address] 2025-01-23 ambulates with cane 2025-01-23 independent of ADL's 2025-01-23 Mental Status Status Date No cognitive issues were noted 8 Assessments Date of Service Assessments 2025-01-23 11:22:00 Morbid obesityCAD (c oronary artery disease)Elevated BP without diagnosis of hypertension Plan of Care Date of Service Plans 2025-01-23 11:22:00 Last seen by PCP hugo mckeon 2 months ago; follows about every 6 months.has lost weight in the last 1-2 years by walking (increased activity)encouraged to continue staying active and losing weighthistory of SD with nitroglycerin PRNheart healthy dietdenies any other prescription medicationsdenies history of HTNdiscussed sodium intake from ordering in food and eating out Goals Date Goal 2025-01-23 Counseled patient re : overweight BMI, to lose weight, exercise, diet Health Concerns Date Concern 2025-01-23 [facility] is a service that involves a physician or advanced practice provider conducting comprehensive assessments in your patient s home or virtually to address crucial areas such as chronic conditions, quality gaps, social concerns, fall risk prevention, and various screenings. Please note that your patient will remain attributed to you even though they are participating in this service. If you have any questions, please reach out directly to our team at the phone number above.Your patient, Carmelo Car, 1945, was seen today for a Healthy House Call visit. Patient read rights and responsibilities and consented to treatment. The purpose of this summary is to update you on the patient's current health status and share any relevant findings from the examination. 2025-01-23 Patient reports he i s a and is seen at the [facility]. 2025-01-23 Patient denies curre nt history of Diabetes mellitus II with CKD, HTN, hyperlipidemia, hypothyroidism and atrial fibrillation. He states he had an SD several years back but no stents were placed. He has nitroglycerin PRN. He denies following a canvas cutter or any other specialists. He denies taking any prescription medications at this time. He denies taking any OTC vitamins/supplements. It was noted he medication bottles behind where he was sitting but states they are old bottles he hasn't thrown away.
[2025-06-03 19:29] VITALS: PULSE 90
[2025-06-03 20:00] VITALS: PULSE 90
[2025-06-03 20:05] LABS: Influenza A QL RT-PCR Negative (Negative); Influenza B QL RT-PCR Negative (Negative); RSV RNA, RT-PCR Negative (Negative); SARS-CoV-2 RNA PCR Negative (Negative)
[2025-06-03] MEDS: LACTATED RINGERS 1,000 ML 999 ML IV CONT (21:09)
[2025-06-03] MEDS: cefTRIAXone 1 GM in SODIUM CHLORIDE 0.9% IV 50 ML 100 ML IVPB (21:09)
--- NOTE | 2025-06-03 22:00 | PC.NURSE ---
pt refusing to be straight cath for urine.
[2025-06-03] MEDS: DOXYCYCLINE IV 100 MG in SODIUM CHLORIDE 0.9% IV 100 ML IVPB (22:34)
[2025-06-03 23:01] LABS: Add Urine Microscopic? YES; Appearance Urine Cloudy (Clear); Glucose Urine UA Negative (Negative); Leukocyte Esterase Ur 1+ LEU/UL (Negative); Nitrate Urine Negative (Negative); Non Pathogenic Casts 0-2; Specific Grav Ur 1.021 (1.001-1.035)
[2025-06-04 00:37] LABS: Thyroid Stimulating Hormone Reflex 11.600 uIU/mL (0.465-4.68)
[2025-06-04 01:34] LABS: Free T4 Free Thyroxine Reflex 0.88 ng/dL (0.78-2.19)
[2025-06-04 02:27] LABS: Total Triiodothyronine (T3) 1.28 NG/ML (0.82-1.58)
== END 2025-06-04 03:04 | disposition short-term general hospital (02) ==
PROVIDERS: Family Medicine; Student in an Organized Health Care Education/Training Program; Emergency Provider Emergency Medicine; PCP Registered Nurse
DX: S06.340A Traumatic hemorrhage of right cerebrum without loss of consciousness, initial encounter (principal); I48.91 Unspecified atrial fibrillation; D72.829 Elevated white blood cell count, unspecified; R41.82 Altered mental status, unspecified; E11.22 Type 2 diabetes mellitus with diabetic chronic kidney disease; I12.9 Hypertensive chronic kidney disease with stage 1 through stage 4 chronic kidney disease, or unspecified chronic kidney disease; N18.9 Chronic kidney disease, unspecified; E11.39 Type 2 diabetes mellitus with other diabetic ophthalmic complication; H42 Glaucoma in diseases classified elsewhere; E78.5 Hyperlipidemia, unspecified; E03.9 Hypothyroidism, unspecified; N40.0 Benign prostatic hyperplasia without lower urinary tract symptoms; Z98.42 Cataract extraction status, left eye; Z98.41 Cataract extraction status, right eye; Z20.822 Contact with and (suspected) exposure to COVID-19; Z79.01 Long term (current) use of anticoagulants; Z79.84 Long term (current) use of oral hypoglycemic drugs; Z79.899 Other long term (current) drug therapy; R94.31 Abnormal electrocardiogram [ECG] [EKG]; K43.9 Ventral hernia without obstruction or gangrene; R93.2 Abnormal findings on diagnostic imaging of liver and biliary tract; N13.2 Hydronephrosis with renal and ureteral calculous obstruction; R90.82 White matter disease, unspecified; W10.9XXA Fall (on) (from) unspecified stairs and steps, initial encounter
CPT/HCPCS: 36415; 70450; 71045; 71250; 73030; 73080; 73502; 74177; 80053; 81001; 83605; 83880; 84439; 84443; 84480; 84484; 85025; 85610; 85730; 87086; 87637; 93005; 96365; 96367; 99284; 99285; J0283; J0696; J7120; Q9967